=== PATIENT | female | born 1945 | race Caucasian/White ===

== ENCOUNTER → 2017-12-14 14:50 | Outpatient (CLI) | payer MEDICARE, SELFPAY ==
--- NOTE | 2017-12-14 14:53 | VDLE_ITS ---
Reason For Study: LLE swelling RIGHT LEFT CFV is compressible, spontaneous, phasic, GSV is normal. competent and demonstrates normal FV is compressible, spontaneous, phasic, augmentation. competent and demonstrates normal Procedure augmentation. Exam performed in department. POP V is compressible, spontaneous, phasic, The exam was diagnostic. competent and demonstrates normal A preliminary report was called and/or faxed augmentation. to Sharon @ Dr. Castro's office @ 325 pm. T/P Trunk is compressible. DR. Castro's office instructed me to fax LT PerV is compressible. prelim to Dr. Turner as Dr. David (PCP) Profunda V is dilated and noncompressible - is out of office. Dr. Turner/staff will extending into CFV. call VL with instructions. CFV is partially compressible. Christine from Dr. Turner's office called in RX PTV is partially compressible. for PT and PT will be seen in office Gastrocnemius V is dilated and non tomorrow. compressible. Interpretation Summary Acute deep vein thrombosis is noted in the left common femoral vein. Acute deep vein thrombosis is noted in the left profunda femoris vein. Acute deep vein thrombosis is noted in the left posterior tibial vein. Acute deep vein thrombosis is noted in the left gastrocnemius vein. The remainder of the left lower extremity deep venous system is patent and compressible. The left femoral vein and popliteal vein are competent. The left great saphenous vein is patent and compressible. Ordering Physician: Jose Castro Referring Physician: Giorgio David M.D. Performed By: Summer Thakkar, POOL, RVT
== END ==
PROVIDERS: Family Provider Family Medicine; PCP Family Medicine; Visit Provider Orthopaedic Surgery Orthopaedic Surgery of the Spine
DX: M79.89 Other specified soft tissue disorders (principal); M43.16 Spondylolisthesis, lumbar region; M41.9 Scoliosis, unspecified; M51.36 Other intervertebral disc degeneration, lumbar region; Z98.1 Arthrodesis status
CPT/HCPCS: 93971

== ENCOUNTER → 2017-12-22 10:37 | Outpatient (CLI) | payer MEDICARE, SELFPAY ==
--- NOTE | 2017-12-22 10:40 | CT_ITS ---
STUDY: CT LUMBAR SPINE WITHOUT CONTRAST REASON FOR EXAM: Female, 72 years old. Lumbar fusion. Continued pain. RADIATION DOSAGE (If Supplied By Facility): CTDIvol = ( 33.60 ) mGy, DLP = ( 911.60 ) mGycm TECHNIQUE: The patient was scanned in a multi detector CT scanner. High resolution transaxial imaging was performed. Sagittal and coronal images were reconstructed. Individualized dose optimization techniques were used for this CT. COMPARISON: None FINDINGS: This evaluation is very significantly limited without prior studies which certainly must exist. Comparison to prior studies recommended when able. There is also significant metal artifact degrading the images and there is also decreased resolution from patient size. There is mild scoliosis to the right. There is normal lordosis. Bilateral intrapedicular screws with posterior rods seen at L2, L3, L4, and L5. No evidence for failure of the fixation hardware. 6 mm anterolisthesis of L4 on L5, otherwise normal alignment. No compression fractures. Pedicles and facet joints are intact at all levels. Prominent facet joint degenerative disease at multiple levels. Multilevel degenerative disc disease. Multilevel vacuum phenomenon. Multilevel loss of disc height most pronounced at L2-L3. Axial images very difficult to evaluate because of metal artifact. Probable mild to moderate spinal stenosis at L1-L2. Multilevel moderate to severe bilateral neural foraminal narrowing. Sacroiliac joints intact bilaterally. Visualized paraspinal soft tissues and structures are grossly negative. CT/Spine Lumbar without Contrast IMPRESSION: This examination is limited by factors above including lack of any prior studies which certainly must exist in this postoperative patient. No definite acute abnormality. Multilevel degenerative disc disease and multilevel bilateral neural foraminal narrowing. No gross acute abnormality or complication related to fixation hardware. Electronically Signed: Enzo Dickerson MD at 14:33 EDT , Service support ,
== END ==
PROVIDERS: Family Provider Family Medicine; PCP Family Medicine; Visit Provider Orthopaedic Surgery Orthopaedic Surgery of the Spine
DX: M43.16 Spondylolisthesis, lumbar region (principal); M41.9 Scoliosis, unspecified; M51.36 Other intervertebral disc degeneration, lumbar region; Z98.1 Arthrodesis status
CPT/HCPCS: 72131

== ENCOUNTER 2018-04-10 11:30 | Outpatient (RCR) | payer MEDICARE, SELFPAY ==
--- NOTE | 2017-11-07 14:17 | HP.PTEVAL ---
Patient's Visit Information NIKITA FOFANA is a 72 year old F referred to Physical Therapy by MUSA WARREN with a diagnosis of S/P LUMBAR FUSION. Date of Evaluation: 11/07/17 Physical Therapist: Tre Davis PT, - Visit Plan Frequency: 3x /Week Duration: 8WEEKS Plan: gait training,postural ex, DLS, BLE strengthening,nustep,CP - Subjective Subjective: This 72 y/o female presents to physical therapy with s/p LUMBAR FUSION on 10/11/17 at [facility].Patient fusion consisted of plates and srews . Patient then transferred [facility] for 3weeks Rehab. D/C to home 11/04/17. Patient had MRI showed stenosis. Tried PT and epidural injections. Patient has DJD needs TKR. Patient has difficutly with walking with fww,standing impairs ADL'S houseworks tasks.Symmtrical lumbar pain ache.[facility]. Denies parathesia/tingling. Patient sleeping in bed.Patient reguires assist with ADL'S bathing dressing,spouse does cooking. Patient has bone stimulation unit 2 hours a day.Patient has brace on all times except resting in bed. HOME SITUATION: 1 story with 3 steps with rails,patient has bedside commode,elvated chair for bathroom. PRECAUTION : NO BENDING/LIFTING/TWISTING. SOCAIL: . VOCATION: - Pain Bilateral Back Pain Intensity (Out of 10): 3 Pain Intensity Range: 10 Left Lower Extremity Pain Intensity (Out of 10): 7 Pain Intensity Range: 10 Comment: walking,lateral calf - Objective POSTURE: foward posture. SKIN: inscion well approximate. NEURO: denies parathesia/tingling ,reflexes L3-4,L5-S1,L4-5 1/3. MMT: quads/hams 4-/5,hip flexion 3-/5 L ,R 3+/5,ankle 4/5. LUMBAR ROM: NT. FLEXABLITY: mod hams. GAIT: ambulated with fww mild/mod foward posture 20 feet x2 reciprocal pattern WITH CGA with lumbar brace. BALANCE: fair with fww - Special Tests L/S Slump test left side: Negative L/S Slump test right side: Negative L/S Left Straight Leg Raise: Negative L/S Right Straight Leg Raise: Negative - Goals Goal 1:: Patient to be Independant with HEP Goal Time Frame: 6-8 Weeks Goal 2:: Patient ambulated with appropriate device community distance with improve qaulity of gat Goal Time Frame: 6-8 Weeks Goal 3:: Patient decrease pain by 50% or greater in lumbar in improve function with gait Goal Time Frame: 6-8 Weeks Goal 4:: Patient to improve strength quads/hams 4/5 ,hip 4-/5 to improve function Goal Time Frame: 6-8 Weeks Goal 5:: Patient improve balance good - with device. Goal Time Frame: 6-8 Weeks Goal 6:: Patient be able to perform ADL'S and and light housework tasks with min limiations Goal Time Frame: 4-6 Weeks - Rehabilitation Potential Physical Therapy Diagnosis: This s/p lumbar fusion with plates srews with decrease gait,balance ,function ,decrease ADL'S and decrease strength and pain thus benifit from skilled PT Rehabilitation Potential: Good - Anticipated Interventions Patient/Client Instruction: Educate patient on: Condition, Plan of Care For the Purpose of:: To decrease pain, To increase ROM, To improve muscle performance and motor function, To improve ability to perform ADL's, To increase tolerance to activity/condition/position, To improve ability of physical actions for home/community/work/leisure, To improve gait and locomotor functions, To improve health of tissue, To increase flexibility/ROM, To improve endurance, To improve balance, To improve safety with gait, To improve ability to perform tasks related to life management Therapeutic Exercise to Include: Strength training, Body mechanics, Postural training, Flexibilty training, Gait and locomotor training, Dynamic Lumbar Stabilization For the Purpose of:: To decrease pain, To increase ROM, To improve muscle performance and motor function, To improve ability to perform ADL's, To increase tolerance to activity/condition/position, To improve performance and independence with ADL's, To improve ability of physical actions for home/community/work/leisure, To improve gait and locomotor functions, To decrease soft tissue restriction, To increase flexibility/ROM, To improve safety with gait, To assume or resume ADL's, To improve ability to perform tasks related to life management, To improve tolerance to ADL's TENS: Yes IF ES: Yes Cryotherapy (ice pack, ice massage): Yes Thermo therapy (hot pack): Yes For the Purpose of:: To decrease pain, To decrease swelling/inflammation, To improve nutrient delivery to tissue, To increase oxygenation perfusion, To improve health of tissue, To decrease soft tissue restriction Thank you for the opportunity to evaluate your patient. For Medicare and Medicare HMO plans, please review the plan of care and approve it. It will need to be FAXED BACK to us at [phone] for Medicare purposes. Please let me know if there are questions or concerns regarding this plan of care. Physician Signature: Date:
--- NOTE | 2017-12-13 15:06 | HP.PTREVAL_ITS ---
MUSA GLASER, It has been my pleasure to treat NIKITA FOFANA over the last 9 visits for S/P LUMBAR FUSION. Please see the progress note below for an update on the physical therapy plan of care! Subjective: Planning to see MD due to increase pain left L-S -buttuck and lateral leg /hams. Pain with walking is worse occassionally sharp/stabbing pain 10/10 in buttuck Objective/Function: POSTURE: mod foward posture. GAIT: ambulates with fww with CGA posture antalgic gait left side slow mary w/c follow 20 feet x1 30 feet x1. NEURO: C/O parathesia /tingling leg left,reflexes 1/3 L3-4,L4-5,L5-S1. EDEMA: 2+ left greaster than 1+ right leg pitted. MMT: quads R 4-/5,L 3+/5, hams bilatera;l 4-/5, R hip flexion 3+/5,L 3/5. LUMBAR ROM: flexion mod/severe loss ,etension severe loss pain Plan Plan: Requesting 10 more visits. Patient to benifit from skilled PT due to pain left lumbar leg impairs ablity to AMBULATE only short distance,decrease strength left leg ,decrease ADL'S. Goals Goal 1:: Patient to be Independant with HEP Goal Time Frame: 6-8 Weeks Goal 2:: Patient ambulated with appropriate device community distance with improve qaulity of gat Goal Time Frame: 6-8 Weeks Goal Progress: Not Progressing Goal 3:: Patient decrease pain by 50% or greater in lumbar in improve function with gait Goal Time Frame: 6-8 Weeks Goal 4:: Patient to improve strength quads/hams 4/5 ,hip 4-/5 to improve function Goal Time Frame: 6-8 Weeks Goal 5:: Patient improve balance good - with device. Goal Time Frame: 6-8 Weeks Goal 6:: Patient be able to perform ADL'S and and light housework tasks with min limiations Goal Time Frame: 4-6 Weeks Anticipated Interventions Patient/Client Instruction: Educate patient on: Condition, Plan of Care For the Purpose of:: To decrease pain, To increase ROM, To improve muscle performance and motor function, To improve ability to perform ADL's, To increase tolerance to activity/condition/position, To improve ability of physical actions for home/community/work/leisure, To improve gait and locomotor functions, To improve health of tissue, To increase flexibility/ROM, To improve endurance, To improve balance, To improve safety with gait, To improve ability to perform tasks related to life management Therapeutic Exercise to Include: Strength training, Body mechanics, Postural training, Flexibilty training, Gait and locomotor training, Dynamic Lumbar Stabilization For the Purpose of:: To decrease pain, To increase ROM, To improve muscle performance and motor function, To improve ability to perform ADL's, To increase tolerance to activity/condition/position, To improve performance and independence with ADL's, To improve ability of physical actions for home/ community/work/leisure, To improve gait and locomotor functions, To decrease soft tissue restriction, To increase flexibility/ROM, To improve safety with gait, To assume or resume ADL's, To improve ability to perform tasks related to life management, To improve tolerance to ADL's TENS: Yes IF ES: Yes Cryotherapy (ice pack, ice massage): Yes Thermo therapy (hot pack): Yes For the Purpose of:: To decrease pain, To decrease swelling/inflammation, To improve nutrient delivery to tissue, To increase oxygenation perfusion, To improve health of tissue, To decrease soft tissue restriction Please do not hesitate to contact me at [phone] by phone or Fax: if you have questions or concerns regarding this new plan of care! Sincerely, Tre Davis PT,
--- NOTE | 2018-01-03 12:26 | HP.PTREVAL_ITS ---
MUSA GLASER, It has been my pleasure to treat NIKITA FOFANA over the last 10 visits for S/ P LUMBAR FUSION. Please see the progress note below for an update on the physical therapy plan of care! Subjective: Seen DR CEDENO leg found DVT on MEDS ,okay did resume PT/. Seen ortho surgeon did CTSCAN. Pain is some better. Location pain lefT L-S region buttuck hams below knee. Received 4 more visits Objective/Function: POSTURE: mod foward posture. GAIT: ambulates with fww with CGA posture antalgic gait left side slow mary w/c follow 20 feet x1 30 feet x1. NEURO: C/O parathesia /tingling leg left,reflexes 1/3 L3-4,L4-5,L5-S1. EDEMA: 2+ left greaster than 1+ right leg pitted. MMT: quads R 4-/5,L 3+/5, hams bilatera;l 4-/5, R hip flexion 3+/5,L 3/5. LUMBAR ROM: flexion mod/severe loss ,etension severe loss pain Plan Plan: cont with POC 2 XWEEK FOR 2WEEKS. Goals Goal 1:: Patient to be Independant with HEP Goal Time Frame: 6-8 Weeks Goal Progress: Progressing Goal 2:: Patient ambulated with appropriate device community distance with improve qaulity of gat Goal Time Frame: 6-8 Weeks Goal Progress: Progressing Goal 3:: Patient decrease pain by 50% or greater in lumbar in improve function with gait Goal Time Frame: 6-8 Weeks Goal Progress: Progressing Goal 4:: Patient to improve strength quads/hams 4/5 ,hip 4-/5 to improve function Goal Time Frame: 6-8 Weeks Goal Progress: Progressing Goal 5:: Patient improve balance good - with device. Goal Time Frame: 6-8 Weeks Goal Progress: Progressing Goal 6:: Patient be able to perform ADL'S and and light housework tasks with min limiations Goal Time Frame: 4-6 Weeks Goal Progress: Progressing Anticipated Interventions Patient/Client Instruction: Educate patient on: Condition, Plan of Care For the Purpose of:: To decrease pain, To increase ROM, To improve muscle performance and motor function, To improve ability to perform ADL's, To increase tolerance to activity/condition/position, To improve ability of physical actions for home/community/work/leisure, To improve gait and locomotor functions, To improve health of tissue, To increase flexibility/ROM, To improve endurance, To improve balance, To improve safety with gait, To improve ability to perform tasks related to life management Therapeutic Exercise to Include: Strength training, Body mechanics, Postural training, Flexibilty training, Gait and locomotor training, Dynamic Lumbar Stabilization For the Purpose of:: To decrease pain, To increase ROM, To improve muscle performance and motor function, To improve ability to perform ADL's, To increase tolerance to activity/condition/position, To improve performance and independence with ADL's, To improve ability of physical actions for home/ community/work/leisure, To improve gait and locomotor functions, To decrease soft tissue restriction, To increase flexibility/ROM, To improve safety with gait, To assume or resume ADL's, To improve ability to perform tasks related to life management, To improve tolerance to ADL's TENS: Yes IF ES: Yes Cryotherapy (ice pack, ice massage): Yes Thermo therapy (hot pack): Yes For the Purpose of:: To decrease pain, To decrease swelling/inflammation, To improve nutrient delivery to tissue, To increase oxygenation perfusion, To improve health of tissue, To decrease soft tissue restriction Please do not hesitate to contact me at [phone] by phone or Fax: if you have questions or concerns regarding this new plan of care! Sincerely, Tre Davis PT,
--- NOTE | 2018-01-16 13:32 | HP.PTREVAL_ITS ---
MUSA GLASER, It has been my pleasure to treat NIKITA FOFANA over the last 13 visits for S/ P LUMBAR FUSION. Please see the progress note below for an update on the physical therapy plan of care! Subjective: Symptoms are intermiitant in left lumbar and calf.Patient needs to use w/c for ADL''S due to min ablity to walk and stand. Difficulty with with ADL 's ,Independant with dressing,spose has assist with bathing,cooking and does cleaning. 6-02/12 with walking with standing short distances .Patient plans to RTD for other diagnostics. Patient also developed DVT left leg caused further impairments with function. Objective/Function: POSTURE: mod foward posture. GAIT: AMBULATES with fww with CGA with w/c follow 30 feet x1. TRANSFERS: SIT-STAND WITH SBA. STAIRS: needs assist with min assist. LUMBAR ROM: flexion mod /severe loss,extreme loss. MMT : quads/hams 4-/5 right hip flexion 4-/5 ,left 3/5 ankle 4-/5 left ,right 4/5 - DF Plan Plan: Reqesting more 8 visits due to compleity issues with patient with decrease gait with fww with back and leg pain ,weakess left leg impairs ADL'S and requires assist. thus benifit from skilled PT Goals Goal 1:: Patient to be Independant with HEP Goal Time Frame: 6-8 Weeks Goal Progress: Progressing Goal 2:: Patient ambulated with appropriate device community distance with improve qaulity of gat Goal Time Frame: 6-8 Weeks Goal Progress: Progressing Goal 3:: Patient decrease pain by 50% or greater in lumbar in improve function with gait Goal Time Frame: 6-8 Weeks Goal Progress: Progressing Goal 4:: Patient to improve strength quads/hams 4/5 ,hip 4-/5 to improve function Goal Time Frame: 6-8 Weeks Goal Progress: Progressing Goal 5:: Patient improve balance good - with device. Goal Time Frame: 6-8 Weeks Goal Progress: Progressing Goal 6:: Patient be able to perform ADL'S and and light housework tasks with min limiations Goal Time Frame: 4-6 Weeks Goal Progress: Progressing Anticipated Interventions Patient/Client Instruction: Educate patient on: Condition, Plan of Care For the Purpose of:: To decrease pain, To increase ROM, To improve muscle performance and motor function, To improve ability to perform ADL's, To increase tolerance to activity/condition/position, To improve ability of physical actions for home/community/work/leisure, To improve gait and locomotor functions, To improve health of tissue, To increase flexibility/ROM, To improve endurance, To improve balance, To improve safety with gait, To improve ability to perform tasks related to life management Therapeutic Exercise to Include: Strength training, Body mechanics, Postural training, Flexibilty training, Gait and locomotor training, Dynamic Lumbar Stabilization For the Purpose of:: To decrease pain, To increase ROM, To improve muscle performance and motor function, To improve ability to perform ADL's, To increase tolerance to activity/condition/position, To improve performance and independence with ADL's, To improve ability of physical actions for home/ community/work/leisure, To improve gait and locomotor functions, To decrease soft tissue restriction, To increase flexibility/ROM, To improve safety with gait, To assume or resume ADL's, To improve ability to perform tasks related to life management, To improve tolerance to ADL's TENS: Yes IF ES: Yes Cryotherapy (ice pack, ice massage): Yes Thermo therapy (hot pack): Yes For the Purpose of:: To decrease pain, To decrease swelling/inflammation, To improve nutrient delivery to tissue, To increase oxygenation perfusion, To improve health of tissue, To decrease soft tissue restriction Please do not hesitate to contact me at [phone] by phone or Fax: if you have questions or concerns regarding this new plan of care! Sincerely, Tre Davis PT,
--- NOTE | 2018-02-27 17:50 | HP.PTREVAL_ITS ---
MUSA GLASER, It has been my pleasure to treat NIKITA FOFANA over the last 19 visits for S/ P LUMBAR FUSION. Please see the progress note below for an update on the physical therapy plan of care! Subjective: Doing better.. Patient is able to do more ADL'S assist with cooking in w/c at home but cant stand for periods of time.Pain back leg 3/10. Patient walking further with fww ,but stays in w/c majority of time.C/O parathesia left foot.Overall getting better Objective/Function: POSTURE: mild foward posture. NEURO: c/o parathesia left foot ,light vtouch intact ,reflexes L3-4,L4-5,L5-S1 1/3. MMT: left hip 3/5, right hip flexion 3+/5 ,ankle 3 /5 dorsiflexion ,quads/hams 4-/5,. TRANSFERS: sit-stand Mod I ndependant. GAIT: Abulate with fww 175 feet x1 with SBA foward posture reciprocal pattern. BALANCE: fair with fww. STAIRS: one step at time with rails with CGA Plan Plan: REGUESTING 8MORE VISITS DUE TO PATIENT IS PROGRESSSING A WITH LESS PAIN IN NAHUN AND LEG. ALTHOUGH STAYS IN W/C DUE TO LIMIATIONS WITH EDURANCE AND PAIN CONTS AFTER 150 FEET WITH GAIT ,PATIENT STAYS IN W/C 90 % OF THE TIME IMPAIRS ADL'S AND WEAKNESS LEFT LEG HIP /ANKLE Goals Goal 1:: Patient to be Independant with HEP Goal Time Frame: 6-8 Weeks Goal Progress: Progressing Goal 2:: Patient ambulated with appropriate device community distance with improve qaulity of gat Goal Time Frame: 6-8 Weeks Goal Progress: Progressing Goal 3:: Patient decrease pain by 50% or greater in lumbar in improve function with gait Goal Time Frame: 6-8 Weeks Goal Progress: Progressing Goal 4:: Patient to improve strength quads/hams 4/5 ,hip 4-/5 to improve function Goal Time Frame: 6-8 Weeks Goal Progress: Progressing Goal 5:: Patient improve balance good - with device. Goal Time Frame: 6-8 Weeks Goal Progress: Progressing Goal 6:: Patient be able to perform ADL'S and and light housework tasks with min limiations Goal Time Frame: 4-6 Weeks Goal Progress: Progressing Anticipated Interventions Patient/Client Instruction: Educate patient on: Condition, Plan of Care For the Purpose of:: To decrease pain, To increase ROM, To improve muscle performance and motor function, To improve ability to perform ADL's, To increase tolerance to activity/condition/position, To improve ability of physical actions for home/community/work/leisure, To improve gait and locomotor functions, To improve health of tissue, To increase flexibility/ROM, To improve endurance, To improve balance, To improve safety with gait, To improve ability to perform tasks related to life management Therapeutic Exercise to Include: Strength training, Body mechanics, Postural training, Flexibilty training, Gait and locomotor training, Dynamic Lumbar Stabilization For the Purpose of:: To decrease pain, To increase ROM, To improve muscle performance and motor function, To improve ability to perform ADL's, To increase tolerance to activity/condition/position, To improve performance and independence with ADL's, To improve ability of physical actions for home/ community/work/leisure, To improve gait and locomotor functions, To decrease soft tissue restriction, To increase flexibility/ROM, To improve safety with gait, To assume or resume ADL's, To improve ability to perform tasks related to life management, To improve tolerance to ADL's TENS: Yes IF ES: Yes Cryotherapy (ice pack, ice massage): Yes Thermo therapy (hot pack): Yes For the Purpose of:: To decrease pain, To decrease swelling/inflammation, To improve nutrient delivery to tissue, To increase oxygenation perfusion, To improve health of tissue, To decrease soft tissue restriction Please do not hesitate to contact me at [phone] by phone or Fax: if you have questions or concerns regarding this new plan of care! Sincerely, Tre Davis PT,
--- NOTE | 2018-04-10 14:59 | HP.PTDCSUM_ITS ---
HP - PT D/C Summary It has been my pleasure to treat NIKITA FOFANA under orders from MUSA GLASER , for the diagnosis of S/P LUMBAR FUSION for a total of 22 visit(s). Discharge Date: 04/10/18 Please see the following information for a summary of their discharge status. - Subjective Subjective: This patient discussed with thwerapist about possible getting left TKR which was recommended by . Patient states cak and leg is better ,just knee pain which impairs gait and function. Patient has been walking more at home and Involving in more ADL'S - Pain Bilateral Back Pain Intensity (Out of 10): 0 Left Lower Extremity Pain Intensity (Out of 10): 3 - Overall Improvement % Improvement: 50 - Objective Objective/Function: POSTURE: stand with foward posture of trunk. GAIT: Ambulates with fww mild foward posture rounded reciprocal pattern decrease stance time left leg antalgic gait 200 feet. MMT: quads/hams 4/5 right left 4-/ 5,righthip flexion 4-/5,left 3+/5, DF RIGHT 4/5 ,LEFT 3+/5. LUMBAR ROM: flexion mod loss,extension severe loss loss. BALANCE: FAIR + WITH FWW - Goals Goal 1:: Patient to be Independant with HEP Goal Progress: Goal Met Goal 2:: Patient ambulated with appropriate device community distance with improve qaulity of gat Goal Progress: Progressing Goal 3:: Patient decrease pain by 50% or greater in lumbar in improve function with gait Goal Progress: Progressing Goal 4:: Patient to improve strength quads/hams 4/5 ,hip 4-/5 to improve function Goal Progress: Progressing Goal 5:: Patient improve balance good - with device. Goal Progress: Progressing Goal 6:: Patient be able to perform ADL'S and and light housework tasks with min limiations Goal Progress: Goal Met - Plan Plan: D/C TO HEP - D/C Information Discharge Comments: HEP If there are questions or concerns regarding this patient's physical therapy, please feel free to call me at [phone]. Thank you for the referral of this patient. Sincerely, Tre Davis, PT,
== END 2018-04-10 19:00 | disposition home or self-care (01) ==
LOC: PT 11:30
PROVIDERS: Family Provider Family Medicine; PCP Family Medicine
DX: Z98.1 Arthrodesis status (principal); M43.16 Spondylolisthesis, lumbar region; M41.9 Scoliosis, unspecified; M51.36 Other intervertebral disc degeneration, lumbar region
CPT/HCPCS: 97035; 97110; 97116; 97162; 97530

== ENCOUNTER 2018-08-13 12:45 | Inpatient (IN) | payer MEDICARE, SELFPAY ==
[2018-08-13 13:09] VITALS: BP 154/61; PULSE 72; RESP 20; TEMP 37.3; O2SAT 96
[2018-08-13 14:40] VITALS: BMI 37.7
[2018-08-13 14:44] VITALS: BMI 37.7
[2018-08-13 15:22] VITALS: BP 151/60; PULSE 90; RESP 18; TEMP 36.7; O2SAT 93
[2018-08-13] MEDS: APIXABAN 2.5 MG TABLET PO (17:33)
[2018-08-13] MEDS: Senna/Docusate Sodium 1 Tablet 2 TABLET PO (17:33)
[2018-08-13] MEDS: oxyCODONE 5 MG Tablet PO (19:03)
--- NOTE | 2018-08-13 19:48 | PCM.HP.STD ---
Problem List (1) Osteoarthritis of left knee Status: Chronic (2) Lumbar spinal stenosis Status: Chronic (3) Hypertension Status: Chronic (4) Allergic rhinitis Status: Chronic (5) GERD (gastroesophageal reflux disease) Status: Chronic (6) Anxiety Status: Chronic (7) Overactive bladder Status: Chronic (8) DVT (deep venous thrombosis) Status: Chronic (9) Pulmonary embolism Status: Chronic History of Present Illness Date of Admission: 08/13/18 Chief Complaint: Here for rehabilitation, strengthening, prior to discharge home with spouse. The patient is a 73 year old Female with below past medical history hospitalized for left total knee replacement 08/08/[address] Venegas, post-operative course unremarkable, admitted to TCU with debility, here for rehabilitation, strengthening, prior to discharge home with spouse. Past Medical History Past Medical History (Chronic Problems): Chronic Problems Osteoarthritis of left knee (Chronic) Lumbar spinal stenosis (Chronic) Hypertension (Chronic) Allergic rhinitis (Chronic) GERD (gastroesophageal reflux disease) (Chronic) Anxiety (Chronic) Overactive bladder (Chronic) DVT (deep venous thrombosis) (Chronic) Pulmonary embolism (Chronic) Allergies Penicillins [PCN] Allergy (Verified 08/13/18 15:22) Swelling Sulfa (Sulfonamide Antibiotics) Allergy (Verified 08/13/18 15:23) Swelling Home Medications: Ambulatory Orders Medication Instructions Recorded Apixaban [Eliquis] 2.5 mg PO BID 08/13/18 Esomeprazole Mag Trihydrate 20 mg PO DAILY 08/13/18 [Nexium] Ibuprofen 400 mg PO BID PRN PRN 08/13/18 Levocetirizine Dihydrochloride 5 mg PO DAILY 08/13/18 [Xyzal] Mv-Mn/C/Glutamin/Lysin/[id number] 1 each PO DAILY 08/13/18 [Airborne Gummies] Oxycodone HCl/Acetaminophen 2 each PO Q4H PRN PRN 08/13/18 [Percocet 5-325 mg Tablet] Oxymetazoline HCl [Afrin] 1 spray NS QHS 08/13/18 Paroxetine HCl [Paxil] 20 mg PO QHS 08/13/18 Pyridoxine HCl (Vitamin B6) [B-6] 200 mg PO DAILY 08/13/18 Telmisartan [Micardis] 40 mg PO DAILY 08/13/18 Tolterodine Tartrate [Detrol] 2 mg PO DAILY PRN PRN 08/13/18 Surgical History: total knee arthroplasty - Left., - - Back Surgery. 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 Lives: Spouse/ Significant Other Smoking Status: Former smoker Tobacco Use: Non-smoker Alcohol: Occasional Drugs: None - *Family History Maternal History Items: No pertinent history Paternal History Items: No pertinent history Review of Systems Constitutional: Denies: Chills, Fever, Weight Change HEENT: Denies: Head Aches, Sinus Congestion, Sinus Drainage Cardiovascular: Denies: Chest Pain, Palpitations Respiratory: Denies: Cough, Shortness of breath at rest, Sputum production Gastrointestinal: Denies: Abdominal Pain, Nausea, Vomiting Genitourinary: Denies: Dysuria Musculoskeletal: Denies: Joint Pain, Joint Tenderness Skin: Denies: Rash, Wounds Neurological: Denies: Numbness, Tingling, Focal weakness Psychiatric: Denies: Anxiety, Depression, Homicidal Ideations, Suicidal Ideations Hematologic/ Lymphatic: Denies: Easy Bruising, Easy Bleeding VTE Information - Inpt Only VTE Present on Admission: No VTE Mechan Device Prophylaxis: Knee High CARMELO Hose VTE Pharm Prophylaxis ordered?: No Reason prophylaxis not ordered:: Treatment Not Indicated - Physical Exam General: Alert, Oriented x3, Cooperative HEENT: Atraumatic, PERRLA, EOMI, Normocephalic Neck: Supple, No JVD, Negative Carotid Bruits Lungs: Clear to auscultation, Normal air movement Cardiovascular: Regular rate, No murmurs Abdomen: Bowel Sounds Present, Soft, Non Tender Extremities: No edema, Capillary Refill Less than 3 Seconds Skin: No rashes, No breakdown, Incision - Left knee clean, dry, intact. Musculoskeletal: No Tenderness to Palpation of Joints or Extremities Neurological: Cranial nerves II-XII grossly intact Psych/Mental Status: Normal Affect, Appropriate Vital Signs Temp Pulse Resp BP Pulse Ox 98.0 F 90 18 151/60 H 93 08/13/18 15:22 08/13/18 15:22 08/13/18 15:22 08/13/18 15:22 08/13/18 15:22 Oxygen Delivery Method Room Air Weight: 109.3 kg Body Mass Index (BMI) 37.7 Assessment/Plan 73 year old female with below past medical history hospitalized for left total knee replacement 08/08/[address] Venegas, admitted to TCU with debility, here for rehabilitation, strengthening, prior to discharge home with spouse. Debility - PT/OT. Pain - Tylenol 1000MG PO Q6H PRN mild pain, Ibuprofen 400MG BID PRN moderate pain, Oxycodone 5MG Q4H PRN severe pain. Bowel - Miralax 17GM daily, senna/colace 2 tablets BID, Dulcolax 10MG PO daily PRN. Pneumonia vaccination - Administer Prevnar 13 and/or Pneumovax 23 as necessary. DVT prophylaxis - Not necessary, already on Eliquis. DVT/PE - Eliquis 2.5MG BID. Allergic Rhinitis - Loratadine 10MG daily, Afrin 1 spray QHS. Hypertension - Losartan 50MG daily. Nutrition - MVI daily. GERD - Pantoprazole 20MG daily. Anxiety - Paroxetine 20MG daily, resident doing well with chronic retirement use, GDR clinically contraindicated. Vitamin B-6 - B-6 200MG daily. OAB - Tolterodine 2MG daily PRN bladder spasms.
--- NOTE | 2018-08-13 19:53 | HP.PCM_ITS ---
Problem List (1) Osteoarthritis of left knee Status: Chronic (2) Lumbar spinal stenosis Status: Chronic (3) Hypertension Status: Chronic (4) Allergic rhinitis Status: Chronic (5) GERD (gastroesophageal reflux disease) Status: Chronic (6) Anxiety Status: Chronic (7) Overactive bladder Status: Chronic (8) DVT (deep venous thrombosis) Status: Chronic (9) Pulmonary embolism Status: Chronic History of Present Illness Date of Admission: 08/13/18 Chief Complaint: Here for rehabilitation, strengthening, prior to discharge home with spouse. The patient is a 73 year old Female with below past medical history hospitalized for left total knee replacement 08/08/[address] Venegas, post-operative course unremarkable, admitted to TCU with debility, here for rehabilitation, strengthening, prior to discharge home with spouse. Past Medical History Past Medical History (Chronic Problems): Chronic Problems Osteoarthritis of left knee (Chronic) Lumbar spinal stenosis (Chronic) Hypertension (Chronic) Allergic rhinitis (Chronic) GERD (gastroesophageal reflux disease) (Chronic) Anxiety (Chronic) Overactive bladder (Chronic) DVT (deep venous thrombosis) (Chronic) Pulmonary embolism (Chronic) Allergies Penicillins [PCN] Allergy (Verified 08/13/18 15:22) Swelling Sulfa (Sulfonamide Antibiotics) Allergy (Verified 08/13/18 15:23) Swelling Home Medications: Ambulatory Orders Medication Instructions Recorded Apixaban [Eliquis] 2.5 mg PO BID 08/13/18 Esomeprazole Mag Trihydrate 20 mg PO DAILY 08/13/18 [Nexium] Ibuprofen 400 mg PO BID PRN PRN 08/13/18 Levocetirizine Dihydrochloride 5 mg PO DAILY 08/13/18 [Xyzal] Mv-Mn/C/Glutamin/Lysin/[id number] 1 each PO DAILY 08/13/18 [Airborne Gummies] Oxycodone HCl/Acetaminophen 2 each PO Q4H PRN PRN 08/13/18 [Percocet 5-325 mg Tablet] Oxymetazoline HCl [Afrin] 1 spray NS QHS 08/13/18 Paroxetine HCl [Paxil] 20 mg PO QHS 08/13/18 Pyridoxine HCl (Vitamin B6) [B-6] 200 mg PO DAILY 08/13/18 Telmisartan [Micardis] 40 mg PO DAILY 08/13/18 Tolterodine Tartrate [Detrol] 2 mg PO DAILY PRN PRN 08/13/18 Surgical History: total knee arthroplasty - Left., - - Back Surgery. 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 Lives: Spouse/ Significant Other Smoking Status: Former smoker Tobacco Use: Non-smoker Alcohol: Occasional Drugs: None - *Family History Maternal History Items: No pertinent history Paternal History Items: No pertinent history Review of Systems Constitutional: Denies: Chills, Fever, Weight Change HEENT: Denies: Head Aches, Sinus Congestion, Sinus Drainage Cardiovascular: Denies: Chest Pain, Palpitations Respiratory: Denies: Cough, Shortness of breath at rest, Sputum production Gastrointestinal: Denies: Abdominal Pain, Nausea, Vomiting Genitourinary: Denies: Dysuria Musculoskeletal: Denies: Joint Pain, Joint Tenderness Skin: Denies: Rash, Wounds Neurological: Denies: Numbness, Tingling, Focal weakness Psychiatric: Denies: Anxiety, Depression, Homicidal Ideations, Suicidal Ideations Hematologic/ Lymphatic: Denies: Easy Bruising, Easy Bleeding VTE Information - Inpt Only VTE Present on Admission: No VTE Mechan Device Prophylaxis: Knee High CARMELO Hose VTE Pharm Prophylaxis ordered?: No Reason prophylaxis not ordered:: Treatment Not Indicated - Physical Exam General: Alert, Oriented x3, Cooperative HEENT: Atraumatic, PERRLA, EOMI, Normocephalic Neck: Supple, No JVD, Negative Carotid Bruits Lungs: Clear to auscultation, Normal air movement Cardiovascular: Regular rate, No murmurs Abdomen: Bowel Sounds Present, Soft, Non Tender Extremities: No edema, Capillary Refill Less than 3 Seconds Skin: No rashes, No breakdown, Incision - Left knee clean, dry, intact. Musculoskeletal: No Tenderness to Palpation of Joints or Extremities Neurological: Cranial nerves II-XII grossly intact Psych/Mental Status: Normal Affect, Appropriate Vital Signs Temp Pulse Resp BP Pulse Ox 98.0 F 90 18 151/60 H 93 08/13/18 15:22 08/13/18 15:22 08/13/18 15:22 08/13/18 15:22 08/13/18 15:22 Oxygen Delivery Method Room Air Weight: 109.3 kg Body Mass Index (BMI) 37.7 Assessment/Plan 73 year old female with below past medical history hospitalized for left total knee replacement 08/08/[address] Venegas, admitted to TCU with debility, here for rehabilitation, strengthening, prior to discharge home with spouse. * Debility - PT/OT. * Pain - Tylenol 1000MG PO Q6H PRN mild pain, Ibuprofen 400MG BID PRN moderate pain, Oxycodone 5MG Q4H PRN severe pain. * Bowel - Miralax 17GM daily, senna/colace 2 tablets BID, Dulcolax 10MG PO daily PRN. * Pneumonia vaccination - Administer Prevnar 13 and/or Pneumovax 23 as necessary. * DVT prophylaxis - Not necessary, already on Eliquis. * DVT/PE - Eliquis 2.5MG BID. * Allergic Rhinitis - Loratadine 10MG daily, Afrin 1 spray QHS. * Hypertension - Losartan 50MG daily. * Nutrition - MVI daily. * GERD - Pantoprazole 20MG daily. * Anxiety - Paroxetine 20MG daily, resident doing well with chronic shelter use, GDR clinically contraindicated. * Vitamin B-6 - B-6 200MG daily. * OAB - Tolterodine 2MG daily PRN bladder spasms.
[2018-08-13] MEDS: Acetaminophen 500 MG Tablet 1000 MG PO (21:10)
[2018-08-14] MEDS: oxyCODONE 5 MG Tablet PO ×4 (00:54→20:33)
[2018-08-14] MEDS: APIXABAN 2.5 MG TABLET PO ×2 (04:44→17:22)
[2018-08-14] MEDS: Pantoprazole Sodium 20 MG Tablet PO (04:44)
[2018-08-14] MEDS: Pyridoxine HCl 100 MG Tablet 200 MG PO (04:44)
[2018-08-14] MEDS: Losartan Potassium 50 MG Tablet PO (04:44)
[2018-08-14] MEDS: Senna/Docusate Sodium 1 Tablet 2 TABLET PO (04:44)
[2018-08-14] MEDS: Loratadine 10 MG Tablet PO (04:44)
[2018-08-14 06:13] LABS: Absolute Lymphocyte Count 2.11 X10^3/ul (0.83-4.51); Absolute Neutrophil Count 4.7 X10^3/uL (2.0-7.7); Basophil# 0.02 X10^3/uL; Basophil% 0.2 % (0-1); Eosinophil# 0.49 X10^3/uL; Eosinophils% 5.8 % (0-5); Hematocrit 33.7 % (37-47); Hemoglobin 10.1 g/dl (12.0-15.0); Lymphocyte # 2.11 X10^3/ul (4.0); Lymphocyte % 24.9 % (19-41); Mean Corpuscular Hgb 28.2 pg (27.0-32.0); Mean Corpuscular Volume 94.1 fL (81-99); Mean Platelet Vol. 9.3 fl (6.2-12.0); Monocyte# 1.15 X10^3/uL; Monocyte% 13.5 % (0-10); Neutrophil % 55.4 % (47-70); Platelet Count 365 K/mm3 (150-450); RBC Distribution Width CV 12.8 % (11.6-14.6); RBC Distribution Width SD 43.5 fl (35.1-43.9); Red Blood Count 3.58 M/mm3 (4.2-5.4); White Blood Count 8.5 K/mm3 (4.4-11.0)
[2018-08-14 06:24] LABS: POSITIVE COUNT NO; POSITIVE DIFFERENTIAL NO; POSITIVE MORPHOLOGY NO
[2018-08-14 06:34] LABS: Anion Gap 7 (5-15); BUN 12 mg/dL (7-18); BUN/Creat Ratio 22.4 RATIO (10-20); Calcium,Total 8.8 mg/dL (8.5-10.1); Chloride 103 mmol/L (98-107); Creatinine, Serum 0.54 mg/dL (0.55-1.02); EST Glomerular Filtration Rate 118 mL/min (>60); Est Glom Filt Rate - Afr Amer 143 mL/min (>60); Estimated Creatinine Clearance 47.27 ml/min; Glucose 108 mg/dL (74-106); Sodium Level 142 mmol/L (136-145)
[2018-08-14] MEDS: Multivitamins,Ther W-Minerals Tablet 1 TABLET PO (07:26)
[2018-08-14] MEDS: Tuberculin,Purif.prot.deriv. 50 TU/ML Vial 5 ML ID (09:45)
[2018-08-14 15:34] VITALS: BP 143/73; PULSE 79; RESP 22; TEMP 36.7; O2SAT 91
--- NOTE | 2018-08-14 18:28 | PCM.PN.RX ---
<Esequiel Arroyo D - Last Filed: 08/14/18 18:28> Progress Note - Pharmacy Subjective: TCU Admission Objective: Allergies Penicillins [PCN] Allergy (Verified 08/13/18 15:22) Swelling Sulfa (Sulfonamide Antibiotics) Allergy (Verified 08/13/18 15:23) Swelling Current Medications Generic Name Dose Route Start Last Admin Trade Name Freq PRN Reason Stop Dose Admin Acetaminophen 1,000 mg 08/13/18 20:09 08/13/18 21:10 Tylenol PO 1,000 mg Q6H PRN PRN Administration MILD PAIN (1-3/10) Apixaban 2.5 mg 08/13/18 18:00 08/14/18 17:22 Eliquis PO 09/03/18 18:01 2.5 mg BID JOSEMANUEL Administration Bisacodyl 10 mg 08/13/18 20:09 Dulcolax PO DAILY PRN Constipation Ibuprofen 400 mg 08/13/18 20:09 Motrin PO BID PRN PRN MODERATE PAIN (4-5/10) Loratadine 10 mg 08/14/18 06:00 08/14/18 04:44 Claritin PO 10 mg DAILY JOSEMANUEL Administration Losartan Potassium 50 mg 08/14/18 06:00 08/14/18 04:44 Cozaar PO 50 mg DAILY JOSEMANUEL Administration Multivitamins/Minerals 1 tablet 08/14/18 08:00 08/14/18 07:26 Multivitamin With Minerals PO 1 tablet DAILY@0800 JOSEMANUEL Administration Oxycodone HCl 5 mg 08/13/18 20:09 08/14/18 13:25 Oxyir PO 5 mg Q4H PRN PRN Administration SEVERE PAIN (6-10/10) Oxymetazoline HCl 1 spray 08/13/18 22:00 08/13/18 20:25 Afrin (Bkc) NASAL Not Given QHS [facility] Pantoprazole Sodium 20 mg 08/14/18 06:00 08/14/18 04:44 Protonix PO 20 mg DAILY JOSEMANUEL Administration Paroxetine HCl 20 mg 08/13/18 17:10 08/14/18 17:22 Paxil PO 20 mg DINNER [facility] Administration Polyethylene Glycol 17 gm 08/14/18 06:00 08/14/18 04:44 Miralax PO Not Given DAILY [facility] Pyridoxine HCl 200 mg 08/14/18 06:00 08/14/18 04:44 Vitamin B-6 PO 200 mg DAILY [facility] Administration Senna/Docusate Sodium 2 tablet 08/13/18 18:00 08/14/18 17:22 Senokot-S, Brii-Colace PO Not Given BID [facility] Tolterodine Tartrate 2 mg 08/13/18 17:30 Detrol La PO DAILY PRN PRN BLADDER SPASMS Tuberculin PPD 5 tu 08/21/18 10:00 Tubersol, Aplisol, Ppd ID 08/21/18 10:01 X1 ONE Problem List Osteoarthritis of left knee (Chronic) Lumbar spinal stenosis (Chronic) Hypertension (Chronic) Allergic rhinitis (Chronic) GERD (gastroesophageal reflux disease) (Chronic) Anxiety (Chronic) Overactive bladder (Chronic) DVT (deep venous thrombosis) (Chronic) Pulmonary embolism (Chronic) Vital Signs Temp Pulse Resp BP Pulse Ox 98.1 F 79 22 H 143/73 H 91 08/14/18 15:34 08/14/18 15:34 08/14/18 15:34 08/14/18 15:34 08/14/18 15:34 Oxygen Delivery Method Room Air Weight: 109.3 kg Body Mass Index (BMI) 37.7 Sodium 142 mmol/L (136-145) 08/14/18 05:20 Potassium 4.0 mmol/L (3.5-5.1) 08/14/18 05:20 Chloride 103 mmol/L (98-107) 08/14/18 05:20 Carbon Dioxide 32.0 mmol/L (21.0-32.0) 08/14/18 05:20 Anion Gap 7 (5-15) 08/14/18 05:20 BUN 12 mg/dL (7-18) 08/14/18 05:20 Creatinine 0.54 mg/dL (0.55-1.02) L 08/14/18 05:20 Est GFR (MDRD) Af Amer 143 mL/min (>60) 08/14/18 05:20 Est GFR (MDRD) Non-Af 118 mL/min (>60) 08/14/18 05:20 BUN/Creatinine Ratio 22.4 RATIO (10-20) H 08/14/18 05:20 Glucose 108 mg/dL (74-106) H 08/14/18 05:20 Assessment/Plan: 1) Pain APAP for mild pain, ibuprofen for moderate pain, oxycodone for severe pain. 2) HTN Losartan daily. Continue to monitor BP/HR, renal function, electrolytes. *3) Tolterodine LA ordered prn for bladder spasms. * Consider shorter acting medication for prn use. LA tolterodine is a 24 hr medication that puts patient at risk for anticholinergic side effects (BEERS). 4) Anticoag Apixaban twice daily. Continue to monitor s/s bleeding. 5) GI Pantoprazole daily. Continue to monitor s/s GI distress. Psychotropic Medications: 6) Anxiety Paroxetine daily. Continue to monitor s/s anxiety. Unnecessary Medications: None Bowel Regimen: 7) Senna/s, PEG, prn bisacodyl. Continue to monitor prn medication use, for constipation/diarrhea. Date of Note:: 08/14/18 - Provider Comments Provider responsibility: Provider responsible to enter orders to implement recommendations <Taqueria Steve Chi - Last Filed: 08/14/18 20:44> Progress Note - Pharmacy Subjective: [] Objective: Allergies Penicillins [PCN] Allergy (Verified 08/13/18 15:22) Swelling Sulfa (Sulfonamide Antibiotics) Allergy (Verified 08/13/18 15:23) Swelling Current Medications Generic Name Dose Route Start Last Admin Trade Name Freq PRN Reason Stop Dose Admin Acetaminophen 1,000 mg 08/13/18 20:09 08/13/18 21:10 Tylenol PO 1,000 mg Q6H PRN PRN Administration MILD PAIN (1-3/10) Apixaban 2.5 mg 08/13/18 18:00 08/14/18 17:22 Eliquis PO 09/03/18 18:01 2.5 mg BID JOSEMANUEL Administration Bisacodyl 10 mg 08/13/18 20:09 Dulcolax PO DAILY PRN Constipation Ibuprofen 400 mg 08/13/18 20:09 Motrin PO BID PRN PRN MODERATE PAIN (4-5/10) Loratadine 10 mg 08/14/18 06:00 08/14/18 04:44 Claritin PO 10 mg DAILY JOSEMANUEL Administration Losartan Potassium 50 mg 08/14/18 06:00 08/14/18 04:44 Cozaar PO 50 mg DAILY JOSEMANUEL Administration Multivitamins/Minerals 1 tablet 08/14/18 08:00 08/14/18 07:26 Multivitamin With Minerals PO 1 tablet DAILY@0800 [facility] Administration Oxycodone HCl 5 mg 08/13/18 20:09 08/14/18 20:33 Oxyir PO 5 mg Q4H PRN PRN Administration SEVERE PAIN (6-10/10) Oxymetazoline HCl 1 spray 08/13/18 22:00 08/14/18 20:36 Afrin (Bkc) NASAL Not Given QHS [facility] Pantoprazole Sodium 20 mg 08/14/18 06:00 08/14/18 04:44 Protonix PO 20 mg DAILY [facility] Administration Paroxetine HCl 20 mg 08/13/18 17:10 08/14/18 17:22 Paxil PO 20 mg DINNER [facility] Administration Polyethylene Glycol 17 gm 08/14/18 06:00 08/14/18 04:44 Miralax PO Not Given DAILY [facility] Pyridoxine HCl 200 mg 08/14/18 06:00 08/14/18 04:44 Vitamin B-6 PO 200 mg DAILY [facility] Administration Senna/Docusate Sodium 2 tablet 08/13/18 18:00 08/14/18 17:22 Senokot-S, Brii-Colace PO Not Given BID [facility] Tolterodine Tartrate 2 mg 08/13/18 17:30 Detrol La PO DAILY PRN PRN BLADDER SPASMS Tuberculin PPD 5 tu 08/21/18 10:00 Tubersol, Aplisol, Ppd ID 08/21/18 10:01 X1 ONE Problem List Osteoarthritis of left knee (Chronic) Lumbar spinal stenosis (Chronic) Hypertension (Chronic) Allergic rhinitis (Chronic) GERD (gastroesophageal reflux disease) (Chronic) Anxiety (Chronic) Overactive bladder (Chronic) DVT (deep venous thrombosis) (Chronic) Pulmonary embolism (Chronic) Vital Signs Temp Pulse Resp BP Pulse Ox 98.1 F 79 22 H 143/73 H 91 08/14/18 15:34 08/14/18 15:34 08/14/18 15:34 08/14/18 15:34 08/14/18 15:34 Oxygen Delivery Method Room Air Weight: 109.3 kg Body Mass Index (BMI) 37.7 Sodium 142 mmol/L (136-145) 08/14/18 05:20 Potassium 4.0 mmol/L (3.5-5.1) 08/14/18 05:20 Chloride 103 mmol/L (98-107) 08/14/18 05:20 Carbon Dioxide 32.0 mmol/L (21.0-32.0) 08/14/18 05:20 Anion Gap 7 (5-15) 08/14/18 05:20 BUN 12 mg/dL (7-18) 08/14/18 05:20 Creatinine 0.54 mg/dL (0.55-1.02) L 08/14/18 05:20 Est GFR (MDRD) Af Amer 143 mL/min (>60) 08/14/18 05:20 Est GFR (MDRD) Non-Af 118 mL/min (>60) 08/14/18 05:20 BUN/Creatinine Ratio 22.4 RATIO (10-20) H 08/14/18 05:20 Glucose 108 mg/dL (74-106) H 08/14/18 05:20 Assessment/Plan: Psychotropic Medications: Unnecessary Medications: Bowel Regimen: - Provider Comments Provider responsibility: Provider responsible to enter orders to implement recommendations Provider Comments to Recommendations by Pharmacy: Agree
--- NOTE | 2018-08-14 18:32 | PHA.CONS_ITS ---
<Esequiel Arroyo D - Last Filed: 08/14/18 18:28> Progress Note - Pharmacy Subjective: TCU Admission Objective: Allergies Penicillins [PCN] Allergy (Verified 08/13/18 15:22) Swelling Sulfa (Sulfonamide Antibiotics) Allergy (Verified 08/13/18 15:23) Swelling Current Medications Generic Name Dose Route Start Last Admin Trade Name Freq PRN Reason Stop Dose Admin Acetaminophen 1,000 mg 08/13/18 20:09 08/13/18 21:10 Tylenol PO 1,000 mg Q6H PRN PRN Administration MILD PAIN (1-3/10) Apixaban 2.5 mg 08/13/18 18:00 08/14/18 17:22 Eliquis PO 09/03/18 18:01 2.5 mg BID JOSEMANUEL Administration Bisacodyl 10 mg 08/13/18 20:09 Dulcolax PO DAILY PRN Constipation Ibuprofen 400 mg 08/13/18 20:09 Motrin PO BID PRN PRN MODERATE PAIN (4-5/10) Loratadine 10 mg 08/14/18 06:00 08/14/18 04:44 Claritin PO 10 mg DAILY JOSEMANUEL Administration Losartan Potassium 50 mg 08/14/18 06:00 08/14/18 04:44 Cozaar PO 50 mg DAILY JOSEMANUEL Administration Multivitamins/Minerals 1 tablet 08/14/18 08:00 08/14/18 07:26 Multivitamin With Minerals PO 1 tablet DAILY@0800 JOSEMANUEL Administration Oxycodone HCl 5 mg 08/13/18 20:09 08/14/18 13:25 Oxyir PO 5 mg Q4H PRN PRN Administration SEVERE PAIN (6-10/10) Oxymetazoline HCl 1 spray 08/13/18 22:00 08/13/18 20:25 Afrin (Bkc) NASAL Not Given [facility] Pantoprazole Sodium 20 mg 08/14/18 06:00 08/14/18 04:44 Protonix PO 20 mg DAILY JOSEMANUEL Administration Paroxetine HCl 20 mg 08/13/18 17:10 08/14/18 17:22 Paxil PO 20 mg [facility] Administration Polyethylene Glycol 17 gm 08/14/18 06:00 08/14/18 04:44 Miralax PO Not Given DAILY [facility] Pyridoxine HCl 200 mg 08/14/18 06:00 08/14/18 04:44 Vitamin B-6 PO 200 mg DAILY [facility] Administration Senna/Docusate Sodium 2 tablet 08/13/18 18:00 08/14/18 17:22 Senokot-S, Brii-Colace PO Not Given BID [facility] Tolterodine Tartrate 2 mg 08/13/18 17:30 Detrol La PO DAILY PRN PRN BLADDER SPASMS Tuberculin PPD 5 tu 08/21/18 10:00 Tubersol, Aplisol, Ppd ID 08/21/18 10:01 X1 ONE Problem List Osteoarthritis of left knee (Chronic) Lumbar spinal stenosis (Chronic) Hypertension (Chronic) Allergic rhinitis (Chronic) GERD (gastroesophageal reflux disease) (Chronic) Anxiety (Chronic) Overactive bladder (Chronic) DVT (deep venous thrombosis) (Chronic) Pulmonary embolism (Chronic) Vital Signs Temp Pulse Resp BP Pulse Ox 98.1 F 79 22 H 143/73 H 91 08/14/18 15:34 08/14/18 15:34 08/14/18 15:34 08/14/18 15:34 08/14/18 15:34 Oxygen Delivery Method Room Air Weight: 109.3 kg Body Mass Index (BMI) 37.7 Sodium 142 mmol/L (136-145) 08/14/18 05:20 Potassium 4.0 mmol/L (3.5-5.1) 08/14/18 05:20 Chloride 103 mmol/L (98-107) 08/14/18 05:20 Carbon Dioxide 32.0 mmol/L (21.0-32.0) 08/14/18 05:20 Anion Gap 7 (5-15) 08/14/18 05:20 BUN 12 mg/dL (7-18) 08/14/18 05:20 Creatinine 0.54 mg/dL (0.55-1.02) L 08/14/18 05:20 Est GFR (MDRD) Af Amer 143 mL/min (>60) 08/14/18 05:20 Est GFR (MDRD) Non-Af 118 mL/min (>60) 08/14/18 05:20 BUN/Creatinine Ratio 22.4 RATIO (10-20) H 08/14/18 05:20 Glucose 108 mg/dL (74-106) H 08/14/18 05:20 Assessment/Plan: 1) Pain APAP for mild pain, ibuprofen for moderate pain, oxycodone for severe pain. 2) HTN Losartan daily. Continue to monitor BP/HR, renal function, electrolytes. *3) Tolterodine LA ordered prn for bladder spasms. * Consider shorter acting medication for prn use. LA tolterodine is a 24 hr medication that puts patient at risk for anticholinergic side effects (BEERS). 4) Anticoag Apixaban twice daily. Continue to monitor s/s bleeding. 5) GI Pantoprazole daily. Continue to monitor s/s GI distress. Psychotropic Medications: 6) Anxiety Paroxetine daily. Continue to monitor s/s anxiety. Unnecessary Medications: None Bowel Regimen: 7) Senna/s, PEG, prn bisacodyl. Continue to monitor prn medication use, for constipation/diarrhea. Date of Note:: 08/14/18 - Provider Comments Provider responsibility: Provider responsible to enter orders to implement recommendations <Taqueria Steve Chi - Last Filed: 08/14/18 20:44> Progress Note - Pharmacy Subjective: [] Objective: Allergies Penicillins [PCN] Allergy (Verified 08/13/18 15:22) Swelling Sulfa (Sulfonamide Antibiotics) Allergy (Verified 08/13/18 15:23) Swelling Current Medications Generic Name Dose Route Start Last Admin Trade Name Freq PRN Reason Stop Dose Admin Acetaminophen 1,000 mg 08/13/18 20:09 08/13/18 21:10 Tylenol PO 1,000 mg Q6H PRN PRN Administration MILD PAIN (1-3/10) Apixaban 2.5 mg 08/13/18 18:00 08/14/18 17:22 Eliquis PO 09/03/18 18:01 2.5 mg BID JOSEMANUEL Administration Bisacodyl 10 mg 08/13/18 20:09 Dulcolax PO DAILY PRN Constipation Ibuprofen 400 mg 08/13/18 20:09 Motrin PO BID PRN PRN MODERATE PAIN (4-5/10) Loratadine 10 mg 08/14/18 06:00 08/14/18 04:44 Claritin PO 10 mg DAILY JOSEMANUEL Administration Losartan Potassium 50 mg 08/14/18 06:00 08/14/18 04:44 Cozaar PO 50 mg DAILY JOSEMANUEL Administration Multivitamins/Minerals 1 tablet 08/14/18 08:00 08/14/18 07:26 Multivitamin With Minerals PO 1 tablet DAILY@0800 [facility] Administration Oxycodone HCl 5 mg 08/13/18 20:09 08/14/18 20:33 Oxyir PO 5 mg Q4H PRN PRN Administration SEVERE PAIN (6-10/10) Oxymetazoline HCl 1 spray 08/13/18 22:00 08/14/18 20:36 Afrin (Bkc) NASAL Not Given QHS [facility] Pantoprazole Sodium 20 mg 08/14/18 06:00 08/14/18 04:44 Protonix PO 20 mg DAILY [facility] Administration Paroxetine HCl 20 mg 08/13/18 17:10 08/14/18 17:22 Paxil PO 20 mg [facility] Administration Polyethylene Glycol 17 gm 08/14/18 06:00 08/14/18 04:44 Miralax PO Not Given DAILY [facility] Pyridoxine HCl 200 mg 08/14/18 06:00 08/14/18 04:44 Vitamin B-6 PO 200 mg DAILY [facility] Administration Senna/Docusate Sodium 2 tablet 08/13/18 18:00 08/14/18 17:22 Senokot-S, Brii-Colace PO Not Given BID [facility] Tolterodine Tartrate 2 mg 08/13/18 17:30 Detrol La PO DAILY PRN PRN BLADDER SPASMS Tuberculin PPD 5 tu 08/21/18 10:00 Tubersol, Aplisol, Ppd ID 08/21/18 10:01 X1 ONE Problem List Osteoarthritis of left knee (Chronic) Lumbar spinal stenosis (Chronic) Hypertension (Chronic) Allergic rhinitis (Chronic) GERD (gastroesophageal reflux disease) (Chronic) Anxiety (Chronic) Overactive bladder (Chronic) DVT (deep venous thrombosis) (Chronic) Pulmonary embolism (Chronic) Vital Signs Temp Pulse Resp BP Pulse Ox 98.1 F 79 22 H 143/73 H 91 08/14/18 15:34 08/14/18 15:34 08/14/18 15:34 08/14/18 15:34 08/14/18 15:34 Oxygen Delivery Method Room Air Weight: 109.3 kg Body Mass Index (BMI) 37.7 Sodium 142 mmol/L (136-145) 08/14/18 05:20 Potassium 4.0 mmol/L (3.5-5.1) 08/14/18 05:20 Chloride 103 mmol/L (98-107) 08/14/18 05:20 Carbon Dioxide 32.0 mmol/L (21.0-32.0) 08/14/18 05:20 Anion Gap 7 (5-15) 08/14/18 05:20 BUN 12 mg/dL (7-18) 08/14/18 05:20 Creatinine 0.54 mg/dL (0.55-1.02) L 08/14/18 05:20 Est GFR (MDRD) Af Amer 143 mL/min (>60) 08/14/18 05:20 Est GFR (MDRD) Non-Af 118 mL/min (>60) 08/14/18 05:20 BUN/Creatinine Ratio 22.4 RATIO (10-20) H 08/14/18 05:20 Glucose 108 mg/dL (74-106) H 08/14/18 05:20 Assessment/Plan: Psychotropic Medications: Unnecessary Medications: Bowel Regimen: - Provider Comments Provider responsibility: Provider responsible to enter orders to implement recommendations Provider Comments to Recommendations by Pharmacy: Agree
[2018-08-15] MEDS: Acetaminophen 500 MG Tablet 1000 MG PO ×4 (00:19→20:52)
[2018-08-15] MEDS: oxyCODONE 5 MG Tablet PO (02:10)
[2018-08-15] MEDS: APIXABAN 2.5 MG TABLET PO ×2 (05:20→17:04)
[2018-08-15] MEDS: Loratadine 10 MG Tablet PO (05:20)
[2018-08-15] MEDS: Losartan Potassium 50 MG Tablet PO (05:20)
[2018-08-15] MEDS: Pyridoxine HCl 100 MG Tablet 200 MG PO (05:21)
[2018-08-15] MEDS: Pantoprazole Sodium 20 MG Tablet PO (05:21)
[2018-08-15] MEDS: Multivitamins,Ther W-Minerals Tablet 1 TABLET PO (07:53)
[2018-08-15] MEDS: Ibuprofen 400 MG Tablet PO (08:09)
[2018-08-15 15:09] VITALS: BP 155/62; PULSE 75; RESP 14; TEMP 37; O2SAT 92
--- NOTE | 2018-08-15 15:50 | CASEMGMT ---
Insurance Clinical information sent. Pending continued stay approval at this time. Auth#[id number] MALIHA Corrales, CERTIFIED SURGICAL FIRST ASSISTANT
--- NOTE | 2018-08-16 01:26 | NURSING ---
RN heard ruddy from nurses' station. Pt found self transferring to restroom. Pt informed she needs to call for assistance to use restroom. Pt stated, I had to go so bad. RN informed pt an alarm would need to be applied for pt safety if pt self transfers again. Pt verbalized understanding and apologized.
[2018-08-16] MEDS: Ibuprofen 400 MG Tablet PO (01:49)
[2018-08-16] MEDS: Tolterodine Tartrate 2 MG CAP.SA PO (01:49)
[2018-08-16] MEDS: Polyethylene Glycol 3350 17 GM PACKET PO (05:23)
[2018-08-16] MEDS: Senna/Docusate Sodium 1 Tablet 2 TABLET PO ×2 (05:26→17:01)
[2018-08-16] MEDS: Loratadine 10 MG Tablet PO (05:26)
[2018-08-16] MEDS: Acetaminophen 500 MG Tablet 1000 MG PO ×3 (05:26→21:37)
[2018-08-16] MEDS: Pantoprazole Sodium 20 MG Tablet PO (05:26)
[2018-08-16] MEDS: Pyridoxine HCl 100 MG Tablet 200 MG PO (05:26)
[2018-08-16] MEDS: APIXABAN 2.5 MG TABLET PO ×2 (05:27→17:01)
[2018-08-16] MEDS: Losartan Potassium 50 MG Tablet PO (05:27)
[2018-08-16] MEDS: Multivitamins,Ther W-Minerals Tablet 1 TABLET PO (08:19)
--- NOTE | 2018-08-16 10:55 | CASEMGMT ---
Brief interview for mental status (BIMS) and resident mood interview (PHQ-9) completed on this day. BIMS score 1515. PHQ-9 score 10/30
[2018-08-16] MEDS: oxyCODONE 5 MG Tablet PO (11:35)
--- NOTE | 2018-08-16 12:02 | NURSING ---
PT reports that she takes Detrol LA BID at home as needed for overactive bladder. Dr Steve updated, ordered changed.
--- NOTE | 2018-08-16 15:21 | CASEMGMT ---
Insurance Continued stay approved with next update due on 08/21/18. Auth#[id number] MALIHA Corrales, LEAD DATA ARCHITECT
[2018-08-16 15:27] VITALS: BP 149/56; PULSE 64; RESP 20; TEMP 36.4; O2SAT 92
[2018-08-16] MEDS: TOLTERODINE TARTRATE 2 MG TABLET PO (17:02)
[2018-08-17] MEDS: APIXABAN 2.5 MG TABLET PO ×2 (04:03→16:37)
[2018-08-17] MEDS: Pyridoxine HCl 100 MG Tablet 200 MG PO (04:03)
[2018-08-17] MEDS: Pantoprazole Sodium 20 MG Tablet PO ×2 (04:03)
[2018-08-17] MEDS: Losartan Potassium 50 MG Tablet PO (04:03)
[2018-08-17] MEDS: Loratadine 10 MG Tablet PO (04:03)
[2018-08-17 04:08] VITALS: BP 133/64; PULSE 77
[2018-08-17] MEDS: Acetaminophen 500 MG Tablet 1000 MG PO ×3 (06:27→21:09)
[2018-08-17] MEDS: Multivitamins,Ther W-Minerals Tablet 1 TABLET PO (09:50)
[2018-08-17] MEDS: oxyCODONE 5 MG Tablet PO ×2 (09:50→19:55)
[2018-08-17] MEDS: TOLTERODINE TARTRATE 2 MG TABLET PO ×2 (09:51→21:11)
[2018-08-17 15:53] VITALS: BP 156/62; PULSE 74; RESP 18; TEMP 36.1; O2SAT 94
[2018-08-17 20:00] VITALS: PULSE 76; O2SAT 95
[2018-08-18] MEDS: oxyCODONE 5 MG Tablet PO ×3 (02:09→23:35)
[2018-08-18] MEDS: Pyridoxine HCl 100 MG Tablet 200 MG PO (05:45)
[2018-08-18] MEDS: APIXABAN 2.5 MG TABLET PO ×2 (05:45→16:38)
[2018-08-18] MEDS: Losartan Potassium 50 MG Tablet PO (05:45)
[2018-08-18] MEDS: Loratadine 10 MG Tablet PO (05:45)
[2018-08-18] MEDS: Acetaminophen 500 MG Tablet 1000 MG PO ×3 (05:47→21:29)
[2018-08-18] MEDS: Multivitamins,Ther W-Minerals Tablet 1 TABLET PO (09:18)
[2018-08-18] MEDS: TOLTERODINE TARTRATE 2 MG TABLET PO (13:25)
[2018-08-18 15:33] VITALS: BP 158/72; PULSE 80; RESP 20; TEMP 36.4; O2SAT 91
[2018-08-18] MEDS: BACITRACIN 15 GM Tube 1 APPLIC TOPICAL (15:59)
[2018-08-18] MEDS: Doxycycline 100 MG CAPSULE PO (16:38)
[2018-08-18 19:35] VITALS: PULSE 71; O2SAT 95
[2018-08-19] MEDS: Acetaminophen 500 MG Tablet 1000 MG PO ×3 (05:38→21:17)
[2018-08-19] MEDS: Pyridoxine HCl 100 MG Tablet 200 MG PO (05:39)
[2018-08-19] MEDS: Losartan Potassium 50 MG Tablet PO (05:39)
[2018-08-19] MEDS: Doxycycline 100 MG CAPSULE PO ×2 (05:39→17:03)
[2018-08-19] MEDS: Loratadine 10 MG Tablet PO (05:39)
[2018-08-19] MEDS: Pantoprazole Sodium 20 MG Tablet PO (05:39)
[2018-08-19] MEDS: BACITRACIN 15 GM Tube 1 APPLIC TOPICAL (05:39)
[2018-08-19] MEDS: APIXABAN 2.5 MG TABLET PO ×2 (05:39→17:04)
[2018-08-19] MEDS: Multivitamins,Ther W-Minerals Tablet 1 TABLET PO (10:00)
[2018-08-19] MEDS: oxyCODONE 5 MG Tablet PO (10:06)
[2018-08-19] MEDS: TOLTERODINE TARTRATE 2 MG TABLET PO (13:44)
[2018-08-19 15:55] VITALS: BP 137/77; PULSE 71; RESP 18; TEMP 36.5; O2SAT 95
[2018-08-19] MEDS: Senna/Docusate Sodium 1 Tablet 2 TABLET PO (17:04)
[2018-08-20] MEDS: Acetaminophen 500 MG Tablet 1000 MG PO ×3 (04:47→20:44)
[2018-08-20] MEDS: Pyridoxine HCl 100 MG Tablet 200 MG PO (04:48)
[2018-08-20] MEDS: Doxycycline 100 MG CAPSULE PO ×2 (04:48→16:40)
[2018-08-20] MEDS: Senna/Docusate Sodium 1 Tablet 2 TABLET PO (04:48)
[2018-08-20] MEDS: Pantoprazole Sodium 20 MG Tablet PO (04:49)
[2018-08-20] MEDS: APIXABAN 2.5 MG TABLET PO ×2 (04:49→16:40)
[2018-08-20] MEDS: Losartan Potassium 50 MG Tablet PO (04:49)
[2018-08-20] MEDS: Loratadine 10 MG Tablet PO (04:49)
[2018-08-20 04:51] VITALS: BP 148/58; PULSE 83
[2018-08-20] MEDS: Multivitamins,Ther W-Minerals Tablet 1 TABLET PO (08:29)
--- NOTE | 2018-08-20 13:15 | CASEMGMT ---
Social Work Spoke with resident in room. Resident requesting for discharge date to be set for 08/21/18. This manager social work spoke with the team, 08/21/18 is an agreeable date at this time as long as resident is able to have support within the home. Resident reporting that resident spouse will be able to stay with resident within the home and provide 24hr care. This manager social work communicating that physical therapy is recommending for resident to have continued therapy services through outpatient therapy. Resident is agreeable to recommendation and requesting for outpatient physical therapy to be set up through [facility]. Resident aware that an order will be faxed to [facility] and then [facility] will contact resident to set up appointment. Resident reporting to have a walker already set up within the home and to not need any durable medical equipment. Resident spouse to provide transportation home for resident. Resident also declining to have Plan of Care meeting. Resident declining for this manager social work to contact resident spouse in regards to discharge, resident reporting to be able to speak with resident spouse about discharge. Support given. Order for outpatient physical therapy faxed to [facility]. Proposed discharge date: 08/21/18 PLAN: Discharge to home with spouse and outpatient physical therapy. Roderick JETT MSW
[2018-08-20 15:22] VITALS: BP 148/62; PULSE 76; RESP 18; TEMP 36.4; O2SAT 93
[2018-08-20] MEDS: TOLTERODINE TARTRATE 2 MG TABLET PO (16:39)
--- NOTE | 2018-08-20 20:43 | DCINST_ITS ---
- Discharge Diagnoses Current Active Problems: Current Active and Chronic Problems Osteoarthritis of left knee (Chronic) Lumbar spinal stenosis (Chronic) Hypertension (Chronic) Allergic rhinitis (Chronic) GERD (gastroesophageal reflux disease) (Chronic) Anxiety (Chronic) Overactive bladder (Chronic) DVT (deep venous thrombosis) (Chronic) Pulmonary embolism (Chronic) You will use the following diet at home:: No restrictions, Regular Your food should be the consistency of: Regular Your liquids should be the consistency of: Regular/Thin Discharge Activity: Return to Normal Activity, May Shower, Use Walker Weight Bearing Status: Weight bearing as tolerated Call your doctor if you observe: Fever of 101 or Higher, Inability to urinate, Inability to have a bowel movement, Shortness of breath, Chest pain, Uncontrolled pain Allergies/Adverse Reactions: Allergies Penicillins [PCN] Allergy (Verified 08/13/18 15:22) Swelling Sulfa (Sulfonamide Antibiotics) Allergy (Verified 08/13/18 15:23) Swelling Medications to take at Discharge Apixaban [Eliquis] 2.5 mg PO BID 08/13/18 Esomeprazole Mag Trihydrate [Nexium] 20 mg PO DAILY 08/13/18 Ibuprofen 400 mg PO BID PRN PRN 08/13/18 Levocetirizine Dihydrochloride [Xyzal] 5 mg PO DAILY 08/13/18 Mv-Mn/C/Glutamin/Lysin/[id number] [Airborne Gummies] 1 each PO DAILY 08/13/18 Oxymetazoline HCl [Afrin] 1 spray NS QHS 08/13/18 Paroxetine HCl [Paxil] 20 mg PO QHS 08/13/18 Pyridoxine HCl (Vitamin B6) [B-6] 200 mg PO DAILY 08/13/18 Telmisartan [Micardis] 40 mg PO DAILY 08/13/18 Tolterodine Tartrate [Detrol] 2 mg PO DAILY PRN PRN 08/13/18 Acetaminophen [Tylenol] 1,000 mg PO Q8 tablet 08/20/18 Doxycycline 100 mg PO BID #14 cap 08/20/18 Oxycodone [Oxyir] 5 mg PO Q4H PRN PRN 5 Days #30 tab 08/20/18 Polyethylene Glycol 3350 [Miralax] 17 gm PO DAILY #30 packet 08/20/18 Senna/Docusate Sodium [Senokot-S] 2 tab PO BID #120 tab 08/20/18 The following prescriptions were given: Oxycodone [Oxyir] 5 mg PO Q4H PRN PRN 5 Days #30 tab PRN Reason: Severe Pain (-05/15) Polyethylene Glycol 3350 [Miralax] 17 gm PO DAILY #30 packet Doxycycline 100 mg PO BID #14 cap Senna/Docusate Sodium [Senokot-S] 2 tab PO BID #120 tab Primary Care Physician: Giorgio David DO [Primary Care Provider] - Please follow up with your Primary Care Physician in: 1 week. Test Results: Test results from this visit will be discussed in further detail at your follow- up appointment, if applicable. Please Follow Up With: Dr Bey When: 1 week. Proposed Discharge Date: 08/21/18
--- NOTE | 2018-08-20 20:43 | PCM.DC.SUM ---
Discharge Date and Diagnosis Date of Admission: 08/13/18 Date of Discharge: 08/21/18 - Secondary Discharge Diagnosis Chronic Problems Osteoarthritis of left knee (Chronic) Lumbar spinal stenosis (Chronic) Hypertension (Chronic) Allergic rhinitis (Chronic) GERD (gastroesophageal reflux disease) (Chronic) Anxiety (Chronic) Overactive bladder (Chronic) DVT (deep venous thrombosis) (Chronic) Pulmonary embolism (Chronic) Hospital Course and Treatment Imaging Results: 08/13/18 13:18 Diet: Regular Diet Operations: None Procedures: None Summary of Care Provided: The patient is a 73 year old Female with below past medical history hospitalized for left total knee replacement 08/08/[address] Venegas, admitted to TCU with debility, here for rehabilitation, strengthening, prior to discharge home with spouse. Discharge home with spouse, and outpatient physical therapy. - Physical Exam Vital Signs Temp Pulse Resp BP Pulse Ox 97.5 F L 76 18 148/62 H 93 08/20/18 15:22 08/20/18 15:22 08/20/18 15:22 08/20/18 15:22 08/20/18 15:22 Oxygen Delivery Method Room Air Weight: 105.914 kg Body Mass Index (BMI) 37.7 Intake and Output for Last 24 Hours 08/18/18 08/19/18 08/20/18 23:59 23:59 23:59 Intake Total 960 / 960 1020 / 1020 960 / 960 Balance 960 / 960 1020 / 1020 960 / 960 Discharge Diet: No Restrictions Discharge Activity: Return to Normal Activity, May Shower, Use Walker Weight Bearing Status: Weight bearing as tolerated Call your doctor if you observe: Fever of 101 or Higher, Inability to urinate, Inability to have a bowel movement, Shortness of breath, Chest pain, Uncontrolled pain Home Medications: Medications to take at Discharge Apixaban [Eliquis] 2.5 mg PO BID 08/13/18 Esomeprazole Mag Trihydrate [Nexium] 20 mg PO DAILY 08/13/18 Ibuprofen 400 mg PO BID PRN PRN 08/13/18 Levocetirizine Dihydrochloride [Xyzal] 5 mg PO DAILY 08/13/18 Mv-Mn/C/Glutamin/Lysin/[id number] [Airborne Gummies] 1 each PO DAILY 08/13/18 Oxymetazoline HCl [Afrin] 1 spray NS QHS 08/13/18 Paroxetine HCl [Paxil] 20 mg PO QHS 08/13/18 Pyridoxine HCl (Vitamin B6) [B-6] 200 mg PO DAILY 08/13/18 Telmisartan [Micardis] 40 mg PO DAILY 08/13/18 Tolterodine Tartrate [Detrol] 2 mg PO DAILY PRN PRN 08/13/18 Acetaminophen [Tylenol] 1,000 mg PO Q8 tablet 08/20/18 Doxycycline 100 mg PO BID #14 cap 08/20/18 Oxycodone [Oxyir] 5 mg PO Q4H PRN PRN 5 Days #30 tab 08/20/18 Polyethylene Glycol 3350 [Miralax] 17 gm PO DAILY #30 packet 08/20/18 Senna/Docusate Sodium [Senokot-S] 2 tab PO BID #120 tab 08/20/18 Following Prescrptions Were Given to Patient: Oxycodone [Oxyir] 5 mg PO Q4H PRN PRN 5 Days #30 tab PRN Reason: Severe Pain (-05/15) Polyethylene Glycol 3350 [Miralax] 17 gm PO DAILY #30 packet Doxycycline 100 mg PO BID #14 cap Senna/Docusate Sodium [Senokot-S] 2 tab PO BID #120 tab Primary Care Physician: Giorgio David DO [Primary Care Provider] - Please follow up with your Primary Care Physician in: 1 week. Please Follow Up With: Dr Bey When: 1 week. Disposition: Home Minutes spent on discharge:: 30 Patient Condition:: Good Medical Necessity - Tobacco Use Smoking Status: Former smoker Tobacco Use: Non-smoker Meaningful Use Info Meaningful Use Diagnoses (Choose all that apply): None applicable
[2018-08-20] MEDS: oxyCODONE 5 MG Tablet PO (23:19)
[2018-08-21] MEDS: Ibuprofen 400 MG Tablet PO (01:34)
[2018-08-21] MEDS: Senna/Docusate Sodium 1 Tablet 2 TABLET PO (05:11)
[2018-08-21] MEDS: Pyridoxine HCl 100 MG Tablet 200 MG PO (05:11)
[2018-08-21] MEDS: Pantoprazole Sodium 20 MG Tablet PO (05:12)
[2018-08-21] MEDS: Losartan Potassium 50 MG Tablet PO (05:12)
[2018-08-21] MEDS: Acetaminophen 500 MG Tablet 1000 MG PO (05:12)
[2018-08-21] MEDS: APIXABAN 2.5 MG TABLET PO (05:12)
[2018-08-21] MEDS: Loratadine 10 MG Tablet PO (05:12)
[2018-08-21] MEDS: Doxycycline 100 MG CAPSULE PO (05:12)
[2018-08-21 06:06] LABS: Absolute Lymphocyte Count 2.05 X10^3/ul (0.83-4.51); Absolute Neutrophil Count 6.4 X10^3/uL (2.0-7.7); Basophil# 0.03 X10^3/uL; Basophil% 0.3 % (0-1); Eosinophil# 0.36 X10^3/uL; Eosinophils% 3.7 % (0-5); Hematocrit 35.6 % (37-47); Hemoglobin 10.6 g/dl (12.0-15.0); Lymphocyte # 2.05 X10^3/ul (4.0); Lymphocyte % 21.2 % (19-41); Mean Corp Hgb Conc 29.8 g/gl (32-36); Mean Corpuscular Volume 94.2 fL (81-99); Mean Platelet Vol. 9.1 fl (6.2-12.0); Monocyte# 0.79 X10^3/uL; Monocyte% 8.2 % (0-10); Neutrophil # 6.42 X10^3/uL (2.7-7.7); Neutrophil % 66.3 % (47-70); Platelet Count 391 K/mm3 (150-450); RBC Distribution Width CV 13.3 % (11.6-14.6); RBC Distribution Width SD 45.4 fl (35.1-43.9); Red Blood Count 3.78 M/mm3 (4.2-5.4); White Blood Count 9.7 K/mm3 (4.4-11.0)
[2018-08-21 06:18] LABS: POSITIVE COUNT NO; POSITIVE DIFFERENTIAL NO; POSITIVE MORPHOLOGY NO
[2018-08-21 06:21] LABS: Anion Gap 6 (5-15); BUN 19 mg/dL (7-18); BUN/Creat Ratio 34.4 RATIO (10-20); Calcium,Total 8.6 mg/dL (8.5-10.1); Chloride 103 mmol/L (98-107); Creatinine, Serum 0.55 mg/dL (0.55-1.02); EST Glomerular Filtration Rate 114 mL/min (>60); Est Glom Filt Rate - Afr Amer 138 mL/min (>60); Estimated Creatinine Clearance 47.27 ml/min; Glucose 100 mg/dL (74-106); Potassium 4.1 mmol/L (3.5-5.1); Sodium Level 138 mmol/L (136-145)
[2018-08-21] MEDS: Multivitamins,Ther W-Minerals Tablet 1 TABLET PO (08:26)
[2018-08-21] MEDS: oxyCODONE 5 MG Tablet PO (08:28)
[2018-08-21 10:58] VITALS: BP 137/62; PULSE 77; RESP 18; TEMP 36.7; O2SAT 94
--- NOTE | 2018-08-21 11:20 | NURSING ---
dr Steve sent down samples 28 tabs of eliquis for discharge, given to pt and .
--- NOTE | 2018-08-21 13:01 | CASEMGMT ---
Insurance Notified insurance of resident discharge on 08/21/18 to home with spouse and outpatient physical therapy. Auth#[id number] [place]
--- NOTE | 2018-08-26 09:27 | MDS.RN ---
Information for the mds was obtained from review of the clinical record, interview of resident, staff, and direct observation of resident's care.
== END 2018-08-21 11:15 | disposition home or self-care (01) | DRG 561 ==
PROVIDERS: Admitting Provider Family Medicine Geriatric Medicine; Family Provider Family Medicine; PCP Family Medicine; Referring Provider Family Medicine Geriatric Medicine; Visit Provider Family Medicine Geriatric Medicine
DX: Z47.1 Aftercare following joint replacement surgery (principal); Z96.652 Presence of left artificial knee joint; Z86.718 Personal history of other venous thrombosis and embolism; K21.9 Gastro-esophageal reflux disease without esophagitis; I10 Essential (primary) hypertension; M48.061 Spinal stenosis, lumbar region without neurogenic claudication; F41.9 Anxiety disorder, unspecified; N32.81 Overactive bladder; Z86.711 Personal history of pulmonary embolism; Z87.891 Personal history of nicotine dependence
CPT/HCPCS: 36415; 80048; 85025; 97110; 97116; 97162; 97166; 97530; 97535; 97802

== ENCOUNTER 2018-12-03 13:00 | Outpatient (RCR) | payer MEDICARE, SELFPAY ==
--- NOTE | 2018-09-03 14:23 | HP.PTEVAL ---
Patient's Visit Information NIKITA FOFANA is a 73 year old F referred to Physical Therapy by Taqueria Steve MD with a diagnosis of S/P LEFT TKR 08/08/18. Date of Evaluation: 09/03/18 Physical Therapist: Mena Ridley, PT, Cert MDT - Visit Plan Frequency: 2-3x /Week Duration: 4-6 Weeks - Subjective Findings: Work/Leisure: RETIRED. Disability: NO. Present symptoms: LEFT KNEE PAIN, STIFFNESS, WEAKNESS AND SWELLING. Present since: YEARS. Pain Scale: 0-4/10. Currently: 0/10. Commenced as a result of: ARTHRITIS. Symptoms at onset: LEFT KNEE. Worse: STANDING, WALKING, BENDING, TWISTING. Better: PAIN PILLS - TYLONOL. ICE. Disturbed sleep: YES. Previous history/Previous treatment: UNREMARKABLE - JUST A COUPLE OF YEARS OF LEFT KNEE PAIN. WAS PLANNIING TO HAVE KNEE REPLACEMENT ABOUT A YEAR AGO BUT THEN BACK FLARED UP AND HAD TO HAVE BACK SURGERY. LEFT KNEE LIMITED BACK REHAB AND HER LEFT KNEE PAIN GOT HORRIBLE BY THE TIME SHE GOT IN TO GET IT FIXED. Gait: INDEP GAIT SHORT DISTANCES WITH FWW. DOES NOT WALK WITHOUT IT. STATES SHE IS REALLY NOT WALKING MUCH AND BROUGHT W/C TO CAR FOR HER TO COME INTO PT TODAY. STATES SHE CAN DO STEPS NOW AT HOME AND COULD NOT BEFORE SURGERY. Accidents: NO. Unexplained weight loss: NO. Imaging: LEFT KNEE X-RAYS BEFORE AND AFTER SURGERY. PMH: OCTOBER 12 2017 - LUMBAR FUSION. HTN. 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 PLOF (Prior Level of Function): INDEP SAFE GAIT WITH CANE COMMUINITY AMBULATOR. OTHER: DID NOT WALK MUCH LAST WEEK DUE TO COUGHING AND BEING SICK. HAD TO CANCEL THERAPY LAST WEEK BECAUSE OF BEING SICK. STATES SHE WAS ON TCU AFTER SURGERY FOR 8 DAYS. - Objective THIS PATIENT REQUESTED TO BE BROUGHT BACK TO PT IN THE WHEELCHAIR - SHE LEFT HER WALKER IN THE CAR. SHE DEMONSTRATES INDEP GAIT IN THE TREATMENT ROOM WITH OUR FRONT WHEELED WALKER WITH SLOW GOLDY AND EXCESSIVE TRUNK FLEXION (S/P BACK SURGERY) AND LIMPING ON BENT LEFT KNEE. PATIENT IS UPPER EXTREMITY DEPENDENT TO TRANSFER FROM SIT TO STAND. LEFT KNEE AROM IN SUPINE WITH A HEEL SLIDE = -30 DEG EXT TO 95 DEG FLEX. MODERATE LEFT KNEE EDEMA EXTENDING DOWN TO FOOT AND ANKLE. PATIENT REPORTS HER SWELLING IS GETTING A LOT BETTER. SURGICAL INCISION LOOKS GOOD WITHOUT ANY SIGNS OF INFECTION. - Rehabilitation Potential Rehabilitation Potential: Fair - Anticipated Interventions Patient/Client Instruction: Educate patient on: Condition, Plan of Care, Risk Factors, Benefits of Fitness Program For the Purpose of:: To improve self management Therapeutic Exercise to Include: Strength training, Balance training, Flexibilty training, Gait and locomotor training, Passive ROM, Active ROM For the Purpose of:: To decrease pain, To increase ROM, To improve muscle performance and motor function, To increase tolerance to activity/condition/position, To improve ability of physical actions for home/community/work/leisure, To improve gait and locomotor functions Cryotherapy (ice pack, ice massage): Yes For the Purpose of:: To decrease pain, To decrease swelling/inflammation Thank you for the opportunity to evaluate your patient. For Medicare and Medicare HMO plans, please review the plan of care and approve it. It will need to be FAXED BACK to us at [phone] for Medicare purposes. For Medicare only, by signing this I certify the plan of care. Please let me know if there are questions or concerns regarding this plan of care. Physician Signature: Date:
--- NOTE | 2018-10-04 14:26 | HP.PTREVAL ---
Taqueria Steve MD, It has been my pleasure to treat NIKITA FOFANA over the last 9 visits for S/P LEFT TKR 08/08/18. Please see the progress note below for an update on the physical therapy plan of care! Subjective: PATIENT STATES I AM DEFINAELY BETTER THAN I WAS THE FIRST DAY. PATIENT REPORTS SHE STILL GETS OUT OF BREATHE BECAUSE SHE IS NOT DOING ENOUGH. NO LBP SITTING IN CLINIC RIGHT NOW BUT 4/10 PAIN WALKING INTO PT. PATIENT REPORTS HER KNEE ACHES OCCASIONALLY BUT THATS NOTHING. SHE REPORTS IT IS AMAZING HOW GOOD HER KNEE IS DOING AND SHE WISHES HER BACK WAS GOOD HER KNEE. STATES SHE DOENS' T THINK SHE NEEDS ANY MORE PT ON HER KNEE BUT THINKS SHE NEEDS BACK PT AGAIN NOW BECAUSE HER KNEE LIMITED HER BEFORE. STATES DR. RANDOLPH RELEASED HER FOR HER BACK AND SHE DOESN'T HAVE ANY MORE FOLLOW UPS SCHEDULED WITH HIM. FOLLOW UP WITH DR. AQUINO FOR HER KNEE IS IN ABOUT 2 WEEKS. NO JUMANA'TS PENDING WITH PCP DR. WHITNEY. Objective/Function: PATIENT HAS MADE GOOD PROGRESS TOWARD ALL PT GOALS WITH HER KNEE BUT SHE STILL HAS SIGNIFICANT DECREASED LEFT KNEE FUNCTIONAL ROM AND STRENGTH. UPON EXAM TODAY: THIS PATIENT AMBULATES INDEP'LY INTO PT WITH FWW X APPROX 300 FEET WITH HEAVY DEPENDENCE ON WALKER, DECREASED CADANCE, EXCESSIVE TRUNK FLEXION AND SOB. INDEP TRANSFER SIT TO STAND BUT DEPENDENCE ON RODOLFO UE'S TO DO SO. ABLE TO TRANSFER INDEP'LY FROM SUPINE TO SIT BUT PROVOKED MILD DIZZINESS BREIFLY. LEFT KNEE ROM IN SUPINE WITH A HEEL SLIDE = -24 DEG EXT TO 107 DEG FLEXION. LEFT LE STRENGTH: HIP 4-/5, KNEE 3-/5, ANKLE 4/5. Plan Plan: RECOMMEND TRIAL OF AQUATIC THERAPY FOR KNEE X 3 VISITS INLUDING LEFT KNEE ROM, STRETCHING AND STRENGTHENING ALONG WITH GAIT TRAINING. HOPING THAT THE WATER WILL DECREASE BACK LIMITING FACTORS IN KNEE REHAB AND PATIENT MAY EVEN BENEFIT FROM AQUATIC THEARPY FOR BACK CONDITION IN THE FUTURE. NO ORDER FOR BACK REHAB AT THIS TIME BUT DISCUSSED PATIENT SEEING DR. RANDOLPH OR DR. WHITNEY FOR HER BACK AGAIN NOW THAT HER KNEE IS STARTING TO DO BETTER. PATIENT IS AGREEABLE WITH THIS POC. Anticipated Interventions Patient/Client Instruction: Educate patient on: Condition, Plan of Care, Risk Factors, Benefits of Fitness Program For the Purpose of:: To improve self management Therapeutic Exercise to Include: Strength training, Balance training, Flexibilty training, Gait and locomotor training, Passive ROM, Active ROM For the Purpose of:: To decrease pain, To increase ROM, To improve muscle performance and motor function, To increase tolerance to activity/condition/position, To improve ability of physical actions for home/community/work/leisure, To improve gait and locomotor functions Cryotherapy (ice pack, ice massage): Yes For the Purpose of:: To decrease pain, To decrease swelling/inflammation Please do not hesitate to contact me at [phone] by phone or if you have questions or concerns regarding this new plan of care! Sincerely, Mena Ridley, PT, Cert MDT
--- NOTE | 2018-10-22 13:58 | HP.PTREVAL ---
Giorgio David, It has been my pleasure to treat NIKITA FOFANA over the last 13 visits for S/P LEFT TKR 08/08/18. Please see the progress note below for an update on the physical therapy plan of care! Subjective: THAT WATER THERAPY IS WONDERFUL. PATIENT REPORTS SHE HAS [employer] HERE THAT SHE CAN USE FOR THE POOL. SHE STATES SHE HAS ALL THE EQUIPMENT AT HOME THAT SHE NEEDS TOO. PATIENT REPORTS THE POOL EVEN HELPED HER BACK. HAD TO MISS ORTHO FOLLOW UP LAST WEEK SO PENDING THIS SUNDAY. MY KNEE FEELS GOOD HAS BEEN USING WALKER FOR ABOUT A YEAR NOW SINCE BACK SURGERY OCTOBER 2017 BUT EVEN USED A WHEELCHAIR BEFORE KNEE SURGERY. STATES SHE NEEDS THE WALKER FOR HER BACK NOT REALLY HER KNEE. PATIENT FEELS SHE WOULD BENEFIT FROM MORE WATER INSTRUCTION TO HELP SUCCESSFULLY TRANSITION TO INDEP POOL EX'S. Objective/Function: PATIENT IS CONTINUING TO MAKE PROGRESS TOWARD ALL PT GOALS WITH HER KNEE BUT SHE STILL HAS SIGNIFICANT DECREASED LEFT KNEE FUNCTIONAL ROM AND STRENGTH. KNEE FLEXION HAS IMPROVED BY 10 DEG IN THE LAST 3 VISITS BUT EXTENSION HAS ONLY IMPROVED BY 2 DEG. PATIENT CONTINUES TO HAVE SIGNIFICANT LEFT KNEE, LEG, FOOT AND ANKLE SWELLING THAT IS UNCHANGING. SHE REPORTS SOME DAYS IT IS HARDLY THERE AND ELEVATING HELPS. HOMANS TEST IS NEGATIVE TODAY. 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 SHE IS HOWEVER ABLE TO INTERMITTENTLY ACTIVELY CORRECT POSTURE IN STANDING BETTER NOW. INDEP TRANSFER SIT TO STAND BUT DEPENDENCE ON RODOLFO UE'S TO DO SO. ABLE TO TRANSFER INDEP'LY FROM SUPINE TO SIT. LEFT KNEE ROM IN SUPINE WITH A HEEL SLIDE = -22 DEG EXT TO 117 DEG FLEXION. LEFT LE STRENGTH: HIP 4-/5, KNEE 3-/5, ANKLE 4/5. RECOMMEND CONTINUED PT DUE TO PROGRESS CONTINUING TO BE MADE AND ROOM FOR FURTHER IMPROVEMENT. LEFS SCORE HAS IMPROVED FROM 29 TO 34. Plan Plan: RECOMMEND CONTINUED AQUATIC THERAPY FOR KNEE 2X'S A WEEK X 3 WEEKS INLUDING LEFT KNEE ROM, STRETCHING AND STRENGTHENING ALONG WITH GAIT TRAINING TO HELP PATIENT SUCCESSFULLY TRANSITION TO INDEP POOL PROGREAM. HOPING THAT THE WATER WILL CONTINUE TO DECREASE BACK LIMITING FACTORS IN KNEE REHAB NO ORDER FOR BACK REHAB AT THIS TIME. PATIENT IS AGREEABLE TO THIS POC Goals Goal 1:: DECREASE LEFT KNEE PAIN AND SWELLING Goal Time Frame: 4-6 Weeks Goal Progress: Progressing Goal 2:: IMPROVE STANDING AND WALKING FUNCTION Goal Time Frame: 4-6 Weeks Goal Progress: Progressing Goal 3:: INCREASE LEFT KNEE FUNCTIONAL ROM Goal Time Frame: 4-6 Weeks Goal Progress: Progressing Goal 4:: INCREASE LEFT KNEE FUNCTIONAL STRENGTH Goal Time Frame: 4-6 Weeks Goal Progress: Progressing Goal 5:: INDEP HOME AND POOL EXERCISE PROGRAMS FOR CONTINUED IMPROVEMENT ONCE FORMAL PHYSICAL THERAPY CONCLUDES. Goal Time Frame: 4-6 Weeks Goal Progress: Progressing Anticipated Interventions Patient/Client Instruction: Educate patient on: Condition, Plan of Care, Risk Factors, Benefits of Fitness Program For the Purpose of:: To improve self management Therapeutic Exercise to Include: Strength training, Balance training, Flexibilty training, Gait and locomotor training, Passive ROM, Active ROM For the Purpose of:: To decrease pain, To increase ROM, To improve muscle performance and motor function, To increase tolerance to activity/condition/position, To improve ability of physical actions for home/community/work/leisure, To improve gait and locomotor functions Cryotherapy (ice pack, ice massage): Yes For the Purpose of:: To decrease pain, To decrease swelling/inflammation Please do not hesitate to contact me at [phone] by phone or if you have questions or concerns regarding this new plan of care! Sincerely, Mena Ridley PT, Cert MDT
--- NOTE | 2018-12-03 14:41 | HP.PTDCSUM_ITS ---
HP - PT D/C Summary It has been my pleasure to treat NIKITA FOFANA under orders from Giorgio aDvid, for the diagnosis of S/P LEFT TKR 08/08/18 for a total of 19 visit(s). Discharge Date: Please see the following information for a summary of their discharge status. - Subjective Subjective: PATIENT REPORTS HER KNEE IS DOING REALLY GOOD. STATES THAT HER BACK IS THE MAIN PROBLEM NOW. SHE STATES SHE IS GLAD SHE HAD THE KNEE SURGERY BECAUSE IT DOESN'T HURT NOW. SHE REPORTS SHE LIKES THE WATER THERAPY AND IT HAS HELPED HER KNEE AND HER BACK. SHE REPORTS THAT NOW THAT SHE HAS WATER EX'S SHE AND TWO OF HER FRIENDS ARE GOING TO COME AND EX IN THE POOL TOGETHER UNTIL HER POOL OPENS. - Pain Left Knee Pain Intensity (Out of 10): 0 LB Pain Intensity (Out of 10): Unrated - Overall Improvement % Improvement: 85 - Objective Objective/Function: PATIENT IS NOT CONTINUING TO MAKE PROGRESS TOWARD ALL OF THE PT GOALS WITH HER KNEE BUT SHE IS INDEP WITH A POOL PROGRAM. SHE STILL HAS SIGNIFICANT DECREASED LEFT KNEE FUNCTIONAL ROM AND STRENGTH. KNEE FLEXION AND EXTENSION ROM HAVE NOT CONTINUED TO IMPROVE. PATIENT CONTINUES TO HAVE SIGNIFI CANT LEFT KNEE, LEG, FOOT AND ANKLE SWELLING THAT IS UNCHANGING AND SHE REPORTS THAT THE DOCTOR RECENTLY TOLD HER THAT IT MAY NOT EVER IMPROVE. SHE REPORTS SOME DAYS IT IS HARDLY THERE AND ELEVATING HELPS. 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 SHE IS HOWEVER ABLE TO INTERMITTENTLY ACTIVELY CORRECT POSTURE IN STANDING BETTER NOW. INDEP TRANSFER SIT TO STAND BUT DEPENDENCE ON RODOLFO UE'S TO DO SO. ABLE TO TRANSFER INDEP'LY FROM SUPINE TO SIT. LEFT KNEE ROM IN SUPINE WITH A HEEL SLIDE = -25 DEG EXT TO 112 DEG FLEXION. LEFT LE STRENGTH: HIP 4-/5, KNEE 3-/5, ANKLE 4/5. RECOMMEND PATIENT CONTINUE INDEP WATER EX AT THIS TIME. PATIENT IS UNALBE TO SLS ON EITHER LE WITHOUT UE ASSIST. SHE IS UNSAFE WITHOUT HER WALKER. [ End ] - Goals Goal 1:: DECREASE LEFT KNEE PAIN AND SWELLING Goal Progress: Goal Met Goal 2:: IMPROVE STANDING AND WALKING FUNCTION Goal Progress: Goal Met Goal 3:: INCREASE LEFT KNEE FUNCTIONAL ROM Goal Progress: Not Progressing Goal 4:: INCREASE LEFT KNEE FUNCTIONAL STRENGTH Goal Progress: Not Progressing Goal 5:: INDEP HOME AND POOL EXERCISE PROGRAMS FOR CONTINUED IMPROVEMENT ONCE FORMAL PHYSICAL THERAPY CONCLUDES. Goal Progress: Goal Met - Plan Plan: D/C TO INDEP WATER EX. PATIENT AGREEABLE. - D/C Information If there are questions or concerns regarding this patient's physical therapy, please feel free to call me at [phone]. Thank you for the referral of this patient. Sincerely, Mena Ridley, PT, Cert MDT
== END 2018-12-03 19:00 | disposition home or self-care (01) ==
LOC: PT 13:00
PROVIDERS: Family Provider Family Medicine; PCP Family Medicine; Visit Provider Family Medicine
DX: Z96.652 Presence of left artificial knee joint (principal)
CPT/HCPCS: 97110; 97113; 97162; 97530

== ENCOUNTER → 2021-10-10 13:13 | Outpatient (CLI) | payer MEDICARE, SELFPAY ==
[2021-10-10 13:37] LABS: Anion Gap 4 (5-15); BUN 22 mg/dL (7-18); BUN/Creat Ratio 26.4 RATIO (10-20); Calcium,Total 9.8 mg/dL (8.5-10.1); Chloride 92 mmol/L (98-107); Creatinine, Serum 0.83 mg/dL (0.55-1.02); EST Glomerular Filtration Rate 70 mL/min (>60); Est Glom Filt Rate - Afr Amer 85 mL/min (>60); Glucose 128 mg/dL (74-106); Magnesium 1.6 mg/dL (1.6-2.6); Potassium 4.9 mmol/L (3.5-5.1); Sodium Level 131 mmol/L (136-145)
== END ==
PROVIDERS: PCP Nurse Practitioner Family
DX: E66.9 Obesity, unspecified (principal); F32.A Depression, unspecified; I10 Essential (primary) hypertension; M19.90 Unspecified osteoarthritis, unspecified site; I35.0 Nonrheumatic aortic (valve) stenosis
CPT/HCPCS: 80048; 83735

== ENCOUNTER 2024-08-07 14:00 | Outpatient (RCR) | payer MEDICARE, SELFPAY ==
--- NOTE | 2024-07-21 12:53 | HP.PTEVAL ---
Patient's Visit Information Visit Information Visit Information: NIKITA FOFANA is a 79 year old F referred to Physical Therapy by WILFRID ORTIZ with a diagnosis of OA R kneeKirstinKA 05/06. Date of Evaluation: 07/21/24 Physical Therapist: Jhony Roldan, DPT, OCS, CSCS Visit Plan Frequency: 4-5x /Week Duration: 4-6 Weeks Plan: 5x/week x 2 weeks then 3x/week x 2-4 week for 1. knee ROM, patellar mobs, PROM, HS and gastroc and quad stretches and rollout. 2. Knee and LE AROM and strengthening to HEP as tolerated. 3. mobility working on sit to stand transfers and standing, then mobility with walkr when appropriate. pt will be limited by very poor knee and general mobility prior to this surgery and not walking hardly in 3-4 yrs and longstanding knee pain and inability to get erect and R hip pain requiring HERNAN, and neuropathy, multiple comorbidities including poor management of self. IE, QS with OP, knee flexion with OP, laq all 5/day Subjective Subjective: R TKA Theo 05/06/24. Will have manipulation tomorrow. Has had home PT after [facility] for 5 days nd then home PT 3x/week for a couple then 2x/week then stopped. been two weeks since any therapy. Having a hard time straightening it. Saw doc last Sunday and will have manip. Not a lot of pain now but hard to walk prior to surgery. Needs hips done also. R hip is painful and will have HERNAN 08/14/23. Regular exercises QS and standing at sink. Bending is going OK. Hard time getting to portopot at end of bed, Can't use walker due to short leg and pain in hip so haven't been walking. Needed rollator prior to surgery. Has lift chair for bathtub. Climb into bed with only leg help. attentive. Uses rollator to sit in and move ar ound at home with assisted pivot transfer. Also h/o sciatic pain. Overall poorly mobile. Last walk [facility] was 4 yrs ago with walker due to knee pain. Pain R hip: Pain Intensity (Out of 10): 0 Pain Intensity Range: 0 and 10 Objective Objective: Pushed back by to PT in WC. Unable to stand and needs assist to pivot trasnfer today. With december VC for Fw weight shift and hand placement, did stand at wh walker for 5 seconds 1x today, screams seemingly in pain but unable to actually tell me why she screams. Limiting factors are lack of extension in lumbar as she stays hunched over, no forward weight shift getting hips over feet, VC needed for hand placement on chair, hip pain R, lack of ROM R knee making her stand on R toe in approx -30 flexion. Seated AROM R knee -28 to 95, L knee i -10 to 98 AROM. Max stiffness and very little movement in R patella today. Tightness obvious in B HS at -50 B. strength hip flexion 3, abd 3, extension 3- knee flexion 3- R and 3 L, flexion 3 B, ankles DF 3 L and 3+ R, 3 inv/ev. Sensation deficit to gross light touch in feet. gastroc max tight at -5 AROM DF. Hard to coordinate movement in LE ankles with poor body awareness and motor control. sit to stand with mod A, stand to sit with min a and VC. Unable to TUG, 30 SSTS or fGA today. Balance/Special Test Scores WOMAC Total Score: 75 WOMAC Percentatge: 21.8800 Goals Goal 1:: -10 to 100 degree AROM R kn ee without pain Goal Time Frame: 4-6 Weeks Goal 2:: Sit to stand with UE I without VC Goal Time Frame: 4-6 Weeks Goal 3:: stand at walker and walk 10 feet mod I with walker Goal Time Frame: 4-6 Weeks Goal 4:: I appropriate HEP to limit future problems with knees. Goal Time Frame: 4-6 Weeks Rehabilitation Potential Physical Therapy Diagnosis: s/p TKA 05/06 and manip will be done on 07/22, very weak and poor mobility prior with multifactorial limitations of mobility. Rehabilitation Potential: Questionable Anticipated Interventions Patient/Client Instruction: Educate patient on: Condition, Plan of Care and Risk Factors For the Purpose of:: To decrease pain, To increase ROM, To improve nutrient delivery to tissue, To improve muscle performance and motor function, To increase tolerance to activity/condition/position, To improve ability of physical actions for home/community/work/leisure and To increase flexibility/ROM Therapeutic Exercise to Include: Strength training, Postural training, Flexibilty training, Gait and locomotor training, Passive ROM and Active ROM For the Purpose of:: To decrease pain, To increase ROM, To improve nutrient delivery to tissue, To improve muscle performance and motor function, To increase tolerance to activity/condition/position, To improve ability of physical actions for home/community/work/leisure and To increase flexibility/ROM Manual Therapy Techniques to Include: Mobilization, Passive ROM and Soft tissue mobilization For the Purpose of:: To decrease pain, To increase ROM, To improve nutrient delivery to tissue and To improve muscle performance and motor function Cryotherapy (ice pack, ice massage): Yes Thermo therapy (hot pack): Yes For the Purpose of:: To decrease pain, To increase ROM and To improve nutrient delivery to tissue Text: Thank you for the opportunity to evaluate your patient. For Medicare and Medicare HMO plans, please review the plan of care and approve it. It will need to be FAXED BACK to us at [phone] for Medicare purposes. For Medicare only, by signing this I certify the plan of care. Please let me know if there are questions or concerns regarding this plan of care. Physician Signature: Date:
--- NOTE | 2024-08-12 11:31 | HP.PT.NRP ---
Patient Information Patient Information: NIKITA FOFANA was seen in my office for initial evaluation on 07/21/24. The following Plan of Care was established for this patient: POC Established Initial Frequency: 4-5x /Week Initial Duration: 4-6 Weeks Anticipated Interventions Patient/Client Instruction: Educate patient on: Condition, Plan of Care and Risk Factors For the Purpose of:: To decrease pain, To increase ROM, To improve nutrient delivery to tissue, To improve muscle performance and motor function, To increase tolerance to activity/condition/position, To improve ability of physical actions for home/community/work/leisure and To increase flexibility/ROM Therapeutic Exercise to Include: Strength training, Postural training, Flexibilty training, Gait and locomotor training, Passive ROM and Active ROM For the Purpose of:: To decrease pain, To increase ROM, To improve nutrient delivery to tissue, To improve muscle performance and motor function, To increase tolerance to activity/condition/position, To improve ability of physical actions for home/community/work/leisure and To increase flexibility/ROM Manual Therapy Techniques to Include: Mobilization, Passive ROM and Soft tissue mobilization For the Purpose of:: To decrease pain, To increase ROM, To improve nutrient delivery to tissue and To improve muscle performance and motor function Cryotherapy (ice pack, ice massage): Yes Thermo therapy (hot pack): Yes For the Purpose of:: To decrease pain, To increase ROM and To improve nutrient delivery to tissue Last Seen Last Seen: This patient was last seen in our office 08/07/24. Pertinent comments regarding their Physical therapy will appear below: Pt seen 9 visits of POC but cancelled the rest and asking for discharge as she will have surgery in 2 days. At this point I will be discontinuing this patient from physical therapy. I would be happy to see this patient again in the future if found appropriate by the physician. Thank you! Jhony Roldan, DPT, OCS, CSCS Balance/Gait/Functional tests Balance/Special Test Scores WOMAC Total Score: 75 WOMAC Percentage: 21.8800
== END 2024-08-07 19:00 | disposition home or self-care (01) ==
LOC: PT 14:00
PROVIDERS: PCP Nurse Practitioner Family; Referring Provider Nurse Practitioner Family; Visit Provider Nurse Practitioner Family
DX: M17.11 Unilateral primary osteoarthritis, right knee (principal)
CPT/HCPCS: 97110; 97163; 97530

== ENCOUNTER 2024-11-04 14:07 | Day surgery (SDC) | payer MEDICARE, SELFPAY ==
--- NOTE | 2024-10-31 13:50 | PAT.ANESEVAL ---
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 When Was Last Pacemaker Check QUESTION #4 FULL TEXT: You/Your Family Experience fever (hyperthermia) with Anesthesia Last Oral Intake Last Oral intake: Last Oral Intake NPO since Meds taken in AM with sips of water? 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 Has anyone observed you stop No 10/31/24 12:07 breathing during sleep? STOP Results Positive 10/31/24 12:07 QUESTION #5 FULL TEXT : Do you snore loudly (louder than talking or can be heard through closed doors)? 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 Specify any problems Hx of Preganancy in last 3 No 10/31/24 12:07 Months Nurse Filling Out Transfusion DSCHRIBER 10/31/24 12:07 & Questions: Date: 10/31/24 10/31/24 12:07 Time: 12:10 10/31/24 12:07 Patient unable to answer at this time (ie. 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: /Reproductive Hx- copying machine mechanic Hx Now No 10/31/24 12:07 Gestational Age (in weeks): EDC: Hx Hx Para Hx Section SAB No 10/31/24 12:07 PFS Medical History (Updated 10/31/24 @ 12:24 by Flavia Dillard) Wears glasses Wears dentures Post-menopausal Alcohol use Bladder disease Uses wheelchair Low iron DVT (deep venous thrombosis) Restless legs Back pain History of diverticulitis Heartburn Former smoker On home oxygen therapy Leg cramps History of pain when walking History of edema History of echocardiogram History of stress test Cardiology follow-up encounter Vitamin D deficiency Panic disorder without agoraphobia Depression HLD (hyperlipidemia) COPD (chronic obstructive pulmonary disease) CHF (congestive heart failure) DDD (degenerative disc disease) Rectal mass Anemia Home Medications ?Medication ?Instructions ?Recorded ?Last Taken ?Type levocetirizine 5 mg tablet (Xyzal) 5 mg PO BID itching 08/13/18 Unknown History tolterodine 2 mg tablet (Detrol) 2 mg PO DAILY PRN PRN Bladder Spasm 08/13/18 Unknown History albuterol sulfate 90 mcg/actuation 1 inh inhalation Q4H PRN shortness 09/02/24 Unknown History aerosol inhaler of breath or wheezing aspirin 81 mg tablet,delayed 81 mg PO QDAY 09/02/24 10/31/24 History release (Adult Aspirin Regimen) atorvastatin 40 mg tablet 40 mg PO QDAY 09/02/24 Unknown History bumetanide 1 mg tablet 1 mg PO QDAY PRN edema 09/02/24 Unknown History cholecalciferol (vitamin D3) 25 25 mcg PO QDAY 09/02/24 Unknown History mcg (1,000 unit) capsule cyanocobalamin (vitamin B-12) 1,000 mcg PO QDAY 09/02/24 Unknown History 1,000 mcg tablet fluticasone 100 mcg-salmeterol 50 1 inh inhalation BID 09/02/24 Unknown History mcg/dose blistr powdr for inhalation (Advair Diskus) losartan 50 mg tablet 50 mg PO QDAY 09/02/24 Unknown History metoprolol succinate 25 mg 25 mg PO QDAY 09/02/24 Unknown History tablet,extended release 24 hr paroxetine HCl 40 mg tablet 40 mg PO QHS 09/02/24 Unknown History potassium chloride 10 mEq 10 meq PO QDAY PRN WITH USE OF 09/02/24 Unknown History capsule,extended release BUMEX ferrous sulfate 325 mg (65 mg 325 mg PO DAILY 10/31/24 10/31/24 History iron) tablet (Feosol) magnesium 250 mg tablet 250 mg PO DAILY 10/31/24 Unknown History oxycodone-acetaminophen 5 mg-325 1 tab PO DAILY PRN PRN pain 10/31/24 Unknown History mg tablet sennosides 8.6 mg-docusate sodium 2 tab PO DAILY 10/31/24 Unknown History 50 mg tablet Allergy/AdvReac Type Severity Reaction Status Date / Time amoxicillin (From Amoxil) Allergy Intermediate Swelling Verified 10/31/24 12:02 lisinopril Allergy Intermediate Other Verified 10/31/24 12:02 Penicillins (PCN) Allergy Swelling Verified 10/31/24 12:02 Sulfa (Sulfonamide Allergy Swelling Verified 10/31/24 12:02 Antibiotics) Family History (Updated 09/02/24 @ 10:44 by Marilee Cheatham) Father Heart disease Seizures CVA (cerebral vascular accident) Mother Chronic mental illness Surgical History (Updated 10/31/24 @ 12:24 by Flavia Dillard) History of cardiac catheterization History of cardiac catheterization History of esophagogastroduodenoscopy (EGD) Hx of colonoscopy Hx of total knee arthroplasty History of lumbar spinal fusion History of total hysterectomy S/P total knee replacement S/P TAVR (transcatheter aortic valve replacement) Social History (Updated 09/02/24 @ 10:44 by Marilee Cheatham) Smoking Status: Former smoker alcohol intake: current Alcohol type: beer Audit: Pertinent Findings Pertinent Findings EKG Perinent findings: 12/07/2021. Sinus rhythm 85 bpm. Borderline T wave abnormality anterior leads. T wave flat or negative V2 through V6 Echo (EF%) pertinent findings: 10/27/2024 EF 60%. Replace aortic valve present. Mildly increased gradient to 15 mmHg. Right PA pressure 46 Consult pertinent findings: [facility] 10/13/2024 office notes. Patient should be optimized from cardiac standpoint once anemia is resolved. Continue iron supplementation and consider EGD if colonoscopy is negative. Recommendation Anesthesia Recommendation Anesthesia recommendation: OPTIMIZED for anesthesia
[2024-11-04] VITALS (9 sets, daily range): BP systolic 142–172; BP diastolic 61–80; PULSE 68–74; RESP 16–18; TEMP 36.2–36.6; O2SAT 96–100; BMI 34.6
--- NOTE | 2024-11-04 15:14 | PCM.PRE.AN2 ---
ASA Classification* ASA Classification ASA Classification: 3 Assessment & Plan Anesthesia* Anesthesia Assessment Anesthesia Assessment: Discussed sedation and/or anesthesia options, risks, benefits, and alternatives with patient/parents/legal guardian/POA. Questions invited. The patient/parents/legal guardian/POA seems to understand and agrees to proceed with anesthesia plan. Reviewed the physical assessment, medical history, allergy history and patient home medications list prior to surgery/procedure/anesthetic and documented any changes. Performed airway and anesthesia risk assessments. Anesthesia Type Anesthesia Type: MAC History Source History Obtained from:: Patient and Chart Anesthesia Focused Assessment* Temperature: 97.9 F Pulse Rate: 72 Blood Pressure: 172/77 Respiratory Rate: 18 Pulse Ox: 96 Oxygen Delivery Method: Room Air Airway Assessment Mouth opens: >3 cm Mallampati Score: IV Teeth Condition: Dentures (Patient has full upper and lower dentures.) Neck Range of motion (ROM): Limited ROM (Somewhat decreased extension) Focused Labs Anesthesia Preop lab: CBC WBC 9.7 K/mm3 (4.4-11.0) 05/15/24 06:25 05/15/24 RBC 3.08 M/mm3 (4.2-5.4) L 05/15/24 06:25 05/15/24 Hgb 8.2 g/dL (12.0-15.0) L 05/15/24 06:25 05/15/24 Hct 27.9 % (37-47) L 05/15/24 06:25 05/15/24 Plt Count 372 K/mm3 (150-450) 05/15/24 06:25 05/15/24 CHEMISTRY Potassium 3.7 mmol/L (3.5-5.1) 05/15/24 06:25 05/15/24 Sodium 136 mmol/L (136-145) 05/15/24 06:25 05/15/24 Magnesium 1.6 mg/dL (1.6-2.6) 10/10/21 12:30 10/10/21 BUN 17 mg/dL (7-18) 05/15/24 06:25 05/15/24 Creatinine 0.61 mg/dL (0.55-1.02) 05/15/24 06:25 05/15/24 Glucose 93 mg/dL (74-106) 05/15/24 06:25 05/15/24 COAG Pre-Assessment Diagnosis/Proposed Procedure Planned Operative Procedure(s): EGD/CSCOPE Anesthesia History 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 When Was Last Pacemaker Check QUESTION #4 FULL TEXT: You/Your Family Experience fever (hyperthermia) with Anesthesia Last Oral Intake Last Oral intake: Last Oral Intake NPO since 11:00 11/04/24 14:44 Meds taken in AM with sips of Yes 11/04/24 14:44 water? 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 Female Yes 10/31/24 12:07 HX of Motion Sickness No 10/31/24 12:07 HX of N/V After Surgery No 10/31/24 12:07 Non-Smoker Yes 10/31/24 12:07 Duration of Surgery greater No 10/31/24 12:07 than 60 minutes Number of Risk Factors 2 10/31/24 12:07 PONV Score Moderate Risk 10/31/24 12:07 Height & Weight Height & Weight: Anesthesia: Height & Weight Height 5 ft 5 in 11/04/24 14:44 Weight: 94.347 kg 11/04/24 14:44 Body Mass Index (BMI) 34.6 11/04/24 14:44 Respiratory Assessment Respiratory Assessment - sports leadership instructor: Respiratory Tract Infection Hx - sports leadership instructor Hx Respiratory Tract Infection No 10/31/24 12:07 STOP Sleep Apnea STOP Sleep Apnea - sports leadership instructor: STOP Sleep Apnea - sports leadership instructor Hx Hypertension Yes: CONTROLLED WITH MED 10/31/24 12:07 Hx Sleep Apnea No 10/31/24 12:07 CPAP BIPAP Do you snore loudly (louder Yes 10/31/24 12:07 than talking or can be heard Do you often feel tired/ No 10/31/24 12:07 fatigued/ sleepy during daytime? Has anyone observed you stop No 10/31/24 12:07 breathing during sleep? STOP Results Positive 10/31/24 12:07 QUESTION #5 FULL TEXT : Do you snore loudly (louder than talking or can be heard through closed doors)? 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 Specify any problems Hx of Preganancy in last 3 No 10/31/24 12:07 Months Nurse Filling Out Transfusion DSCHRIBER 10/31/24 12:07 & Questions: Date: 10/31/24 10/31/24 12:07 Time: 12:10 10/31/24 12:07 Patient unable to answer at this time (ie. confused, unrespo /Reproduction History /Reproductive History - sports leadership instructor: /Reproductive Hx- sports leadership instructor Hx Now No 10/31/24 12:07 Gestational Age (in weeks): EDC: Hx Hx Para Hx Section SAB No 10/31/24 12:07 PFSH Medical History Wears glasses Wears dentures Post-menopausal Alcohol use Bladder disease Uses wheelchair Low iron DVT (deep venous thrombosis) Restless legs Back pain History of diverticulitis Heartburn Former smoker On home oxygen therapy Leg cramps History of pain when walking History of edema History of echocardiogram History of stress test Cardiology follow-up encounter Vitamin D deficiency Panic disorder without agoraphobia Depression HLD (hyperlipidemia) COPD (chronic obstructive pulmonary disease) CHF (congestive heart failure) DDD (degenerative disc disease) Rectal mass Anemia Home Medications ?Medication ?Instructions ?Recorded ?Last Taken ?Type levocetirizine 5 mg tablet (Xyzal) 5 mg PO BID itching 08/13/18 11/04/24 08:00 History tolterodine 2 mg tablet (Detrol) 2 mg PO DAILY PRN PRN Bladder Spasm 08/13/18 Unknown History albuterol sulfate 90 mcg/actuation 1 inh inhalation Q4H PRN shortness 09/02/24 Unknown History aerosol inhaler of breath or wheezing aspirin 81 mg tablet,delayed 81 mg PO QDAY 09/02/24 10/31/24 History release (Adult Aspirin Regimen) atorvastatin 40 mg tablet 40 mg PO QDAY 09/02/24 11/03/24 History bumetanide 1 mg tablet 1 mg PO QDAY PRN edema 09/02/24 Unknown History cholecalciferol (vitamin D3) 25 25 mcg PO QDAY 09/02/24 10/31/24 History mcg (1,000 unit) capsule cyanocobalamin (vitamin B-12) 1,000 mcg PO QDAY 09/02/24 10/31/24 History 1,000 mcg tablet fluticasone 100 mcg-salmeterol 50 1 inh inhalation BID 09/02/24 11/04/24 08:00 History mcg/dose blistr powdr for inhalation (Advair Diskus) losartan 50 mg tablet 50 mg PO QDAY 09/02/24 11/04/24 08:00 History metoprolol succinate 25 mg 25 mg PO QDAY 09/02/24 11/04/24 08:00 History tablet,extended release 24 hr paroxetine HCl 40 mg tablet 40 mg PO QHS 09/02/24 11/03/24 History potassium chloride 10 mEq 10 meq PO QDAY PRN WITH USE OF 09/02/24 Unknown History capsule,extended release BUMEX ferrous sulfate 325 mg (65 mg 325 mg PO DAILY 10/31/24 10/31/24 History iron) tablet (Feosol) magnesium 250 mg tablet 250 mg PO DAILY 10/31/24 10/31/24 History oxycodone-acetaminophen 5 mg-325 1 tab PO DAILY PRN PRN pain 10/31/24 11/03/24 History mg tablet sennosides 8.6 mg-docusate sodium 2 tab PO DAILY 10/31/24 Unknown History 50 mg tablet Allergy/AdvReac Type Severity Reaction Status Date / Time amoxicillin (From Amoxil) Allergy Intermediate Swelling Verified 11/04/24 14:36 lisinopril Allergy Intermediate Other Verified 11/04/24 14:36 Penicillins (PCN) Allergy Swelling Verified 11/04/24 14:36 Sulfa (Sulfonamide Allergy Swelling Verified 11/04/24 14:36 Antibiotics) Family History Father Heart disease Seizures CVA (cerebral vascular accident) Mother Chronic mental illness Surgical History History of cardiac catheterization History of cardiac catheterization History of esophagogastroduodenoscopy (EGD) Hx of colonoscopy Hx of total knee arthroplasty History of lumbar spinal fusion History of total hysterectomy S/P total knee replacement S/P TAVR (transcatheter aortic valve replacement) Social History Smoking Status: Former smoker alcohol intake: current Alcohol type: beer Review of Systems (Anesthesia) ROS Narrative System reviewed and no additional complaints, except as documented.
--- NOTE | 2024-11-04 15:15 | EGD_PTH ---
PATIENT: NIKITA FOFANA LOC: EN U#:[id number] AGE/SX: 79/F ROOM: RE11/04/[address]: Dr. Jesu Simmons DO : 1945 BED: DIS: 11/04/2024 SPEC #: [id number] RECD: 11/05/24 11:05 STATUS: [place] REGeoffrey #: [id number] ISMAEL: 11/04/24 15:[address]: Jesu Simmons DEPT: SURGICAL PATHOLOGY RECD BY: Gregor Slaughter ENTERED: 11/05/24 11:05 SP TYPE: EGD BIOPSY SHERITA DR: Tramaine Dunbar, BUSINESS CONTINUITY MANAGER-C Tissues: A - Gastric mucous membrane B - Cecum, NOS Procedures: Immunohistochemical Stains Surgery Specimen Level IV HEADER OPERATION: Colonoscopy with biopsy, EGD with biopsy PRE-OP DIAGNOSIS: Abdominal pain, anemia TISSUE SUBMITTED: A- Gastric ulcer biopsy, B- Cecal polyp biopsy MICROSCOPIC DIAGNOSIS A. Stomach, Ulcer, Biopsy: - Mild chronic inflammation with reactive/reparative changes. - IHC is negative for H pylori organisms. B. Colon, Cecum, Polyp, Biopsy: - Tubular adenoma. MICROSCOPIC DESCRIPTION Slides are reviewed. These tests were developed and their performance characteristics determined by [facility]. They may not have been cleared or approved by the U.S. Food and Drug Administration. The FDA has determined that such clearance or approval is not necessary. The above immunohistochemical/dualISH markers are ordered and reviewed by the Pathologist. GROSS DESCRIPTION A. Received in formalin in a container labeled with the patient's name, date of , and Gastric ulcer biopsy are 3 sloan-pink fragments of mucosal tissue ranging from 0.2 x 0.2 x 0.2 cm to 0.3 x 0.3 x 0.3 cm. Submitted in toto in A1. B. Received in formalin in a container labeled with the patient's name, date of , and Cecal polyp biopsy is a 0.4 x 0.3 x 0.2 cm fragment of sloan-pink mucosal tissue. Submitted in toto in B1. SB 11/05/2024 CPT:36658k2,71073
--- NOTE | 2024-11-04 15:18 | PCM.HP.STD ---
HPI - General General Date of Admission: 11/04/24 Date of Service: 11/04/24 Chief Complaint: anemia HPI Narrative NIKITA FOFANA, is a 79 F who presents for the endoscopic evaluation of anemia. Pt was preparing to undergo hip replacement surgery but was found to have anemia and her surgeons would not proceed until the hemoglobin was normalized. She does not endorse any blood in her stool or black tarry stools. She did have some abd pain a few weeks ago in the LLQ for which she was seen in the ED for. Work up revealed low hgb, iron and CT showing possible thickening in the anorectal region. She was discharged. She is no longer having any abd pain. She has a daily bm that is soft. Her last colonoscopy and EGD was over 10 years ago with no abnormalities. CT abd/pelvis 2.5.25; Study is degraded due to motion and decreased signal to noise ratio. Focal soft tissue thickening/fullness of the anorectal junction may suggest neoplasm or less likely an acute infectious/inflammatory proctitis. Recommend correlation with direct physical exam. Moderate sigmoid diverticulosis w/o diverticulitis. [facility] Medical History Wears glasses Wears dentures Post-menopausal Alcohol use Bladder disease Uses wheelchair Low iron DVT (deep venous thrombosis) Restless legs Back pain History of diverticulitis Heartburn Former smoker On home oxygen therapy Leg cramps History of pain when walking History of edema History of echocardiogram History of stress test Cardiology follow-up encounter Vitamin D deficiency Panic disorder without agoraphobia Depression HLD (hyperlipidemia) COPD (chronic obstructive pulmonary disease) CHF (congestive heart failure) DDD (degenerative disc disease) Rectal mass Anemia Home Medications ?Medication ?Instructions ?Recorded ?Last Taken ?Type levocetirizine 5 mg tablet (Xyzal) 5 mg PO BID itching 08/13/18 11/04/24 08:00 History tolterodine 2 mg tablet (Detrol) 2 mg PO DAILY PRN PRN Bladder Spasm 08/13/18 Unknown History albuterol sulfate 90 mcg/actuation 1 inh inhalation Q4H PRN shortness 09/02/24 Unknown History aerosol inhaler of breath or wheezing aspirin 81 mg tablet,delayed 81 mg PO QDAY 09/02/24 10/31/24 History release (Adult Aspirin Regimen) atorvastatin 40 mg tablet 40 mg PO QDAY 09/02/24 11/03/24 History bumetanide 1 mg tablet 1 mg PO QDAY PRN edema 09/02/24 Unknown History cholecalciferol (vitamin D3) 25 25 mcg PO QDAY 09/02/24 10/31/24 History mcg (1,000 unit) capsule cyanocobalamin (vitamin B-12) 1,000 mcg PO QDAY 09/02/24 10/31/24 History 1,000 mcg tablet fluticasone 100 mcg-salmeterol 50 1 inh inhalation BID 09/02/24 11/04/24 08:00 History mcg/dose blistr powdr for inhalation (Advair Diskus) losartan 50 mg tablet 50 mg PO QDAY 09/02/24 11/04/24 08:00 History metoprolol succinate 25 mg 25 mg PO QDAY 09/02/24 11/04/24 08:00 History tablet,extended release 24 hr paroxetine HCl 40 mg tablet 40 mg PO QHS 09/02/24 11/03/24 History potassium chloride 10 mEq 10 meq PO QDAY PRN WITH USE OF 09/02/24 Unknown History capsule,extended release BUMEX ferrous sulfate 325 mg (65 mg 325 mg PO DAILY 10/31/24 10/31/24 History iron) tablet (Feosol) magnesium 250 mg tablet 250 mg PO DAILY 10/31/24 10/31/24 History oxycodone-acetaminophen 5 mg-325 1 tab PO DAILY PRN PRN pain 10/31/24 11/03/24 History mg tablet sennosides 8.6 mg-docusate sodium 2 tab PO DAILY 10/31/24 Unknown History 50 mg tablet Allergy/AdvReac Type Severity Reaction Status Date / Time amoxicillin (From Amoxil) Allergy Intermediate Swelling Verified 11/04/24 14:36 lisinopril Allergy Intermediate Other Verified 11/04/24 14:36 Penicillins (PCN) Allergy Swelling Verified 11/04/24 14:36 Sulfa (Sulfonamide Allergy Swelling Verified 11/04/24 14:36 Antibiotics) Family History Father Heart disease Seizures CVA (cerebral vascular accident) Mother Chronic mental illness Surgical History History of cardiac catheterization History of cardiac catheterization History of esophagogastroduodenoscopy (EGD) Hx of colonoscopy Hx of total knee arthroplasty History of lumbar spinal fusion History of total hysterectomy S/P total knee replacement S/P TAVR (transcatheter aortic valve replacement) Social History Smoking Status: Former smoker alcohol intake: current Alcohol type: beer ROS Constitutional Constitutional: Denies fatigue, fever(s), poor appetite, weight gain or weight loss Gastrointestinal Gastrointestinal: Denies belching, bloating, change in bowel habits, change in stool character, chewing difficulty, coffee ground emesis, constipation, cramping, diarrhea, dyspepsia, dysphagia, early satiety, excessive flatus, fecal incontinence, heartburn, hematemesis, hematochezia, hemorrhoids, loose stools, melena, nausea, odynophagia, rectal bleeding, tenesmus, vomiting or weight changes Vital Signs Vital Signs Vital Signs: 11/04/24 14:41 11/04/24 14:44 Temperature 97.9 F Temperature Source Temporal Pulse Rate 72 Respiratory Rate 18 Respiratory Pattern Normal Blood Pressure 172/77 H Blood Pressure Mean 108 Blood Pressure Source Monitor Blood Pressure Position Semi-Fowlers Blood Pressure Location Left Arm Pulse Ox 96 Oxygen Delivery Method Room Air Weight Weight: 208 lb Body Mass Index (BMI) 34.6 Physical Exam Const alert, oriented x3, no apparent distress and healthy appearing General Appearance: cooperative GI normal to inspection, nondistended, normoactive bowel sounds, soft to palpation, non-tender and non-distended Percussion: normal to percussion Rectal Exam: deferred Assessment & Plan Assessment/Plan (1) Abdominal pain: (2) Anemia: PLAN: Assessment and Plan Assessment and Plan (1) Anemia: Status: Acute Plan: This is an 79 yo female pt here for evaluation of anemia. Pt was to undergo hip replacement surgery until she was found to be anemic. She is unaware of any blood in her stool. SHe does not have black or tarry looking stools. She did have some abd pain for one day and did go to the ED. CT revealed possible thickening in the anorectal region concerning for neoplasm. pt was unaware of the results of this CT so I did review with her. Her Hgb at the end of Aug 2024 was around 9 and iron was low at 20. I recommend she start an iron supplement. I did advise this may give her constipation and black stool. She will need to undergo EGD and colonoscopy to assess for GI bleeding and rule out malignancy in her rectum. SHe is agreeable to this plan and will proceed. -Colonoscopy -EGD -f/u after procedure (2) Abdominal pain: Status: Acute
--- NOTE | 2024-11-04 16:05 | OP.EGD_ITS ---
Patient Name: Asmita Huddleston Procedure Date: 11/04/2024 3:23 PM Date of : 1945 Age: 79 Procedure: Upper GI endoscopy Indications: Iron deficiency anemia Providers: Jesu Simmons DO Medicines: Monitored Anesthesia Care Patient Profile: This is an 79 year old female. Refer to note in patient chart for documentation of history and physical. Patient has symptoms. Complications: No immediate complications. Procedure: Pre-Anesthesia Assessment: - Prior to the procedure, a History and Physical was performed, and patient medications and allergies were reviewed. The patient is competent. The risks and benefits of the procedure and the sedation options and risks were discussed with the patient. All questions were answered and informed consent was obtained. Patient identification and proposed procedure were verified by the physician in the pre-procedure area. Mental Status Examination: alert and oriented. Airway Examination: normal oropharyngeal airway and neck mobility. Respiratory Examination: clear to auscultation. CV Examination: normal. ASA Grade Assessment: II - A patient with mild systemic disease. After reviewing the risks and benefits, the patient was deemed in satisfactory condition to undergo the procedure. The anesthesia plan was to use monitored anesthesia care (MAC). Immediately prior to administration of medications, the patient was re-assessed for adequacy to receive sedatives. The heart rate, respiratory rate, oxygen saturations, blood pressure, adequacy of pulmonary ventilation, and response to care were monitored throughout the procedure. The physical status of the patient was re-assessed after the procedure. After obtaining informed consent, the endoscope was passed under direct vision. Throughout the procedure, the patient's blood pressure, pulse, and oxygen saturations were monitored continuously. The Colonoscope was introduced through the mouth, and advanced to the fourth part of the duodenum. Small bowel enteroscopy was deemed necessary. The upper GI endoscopy was accomplished without difficulty. The patient tolerated the procedure well. Scope In: 3:35:43 PM Scope Out: 3:39:20 PM Total Procedure Duration Time 0 hours 3 minutes 37 seconds Findings: No gross lesions were noted in the entire esophagus. A hiatal hernia was present. Two non-bleeding cratered gastric ulcers with no stigmata of bleeding were found in the gastric antrum. The largest lesion was 10 mm in largest dimension. Biopsies were taken with a cold forceps for histology. Verification of patient identification for the specimen was done. Biopsies were taken with a cold forceps for Helicobacter pylori testing. Verification of patient identification for the specimen was done. Estimated blood loss was minimal. No gross lesions were noted in the third portion of the duodenum. Impression: - No gross lesions in the entire esophagus. - Hiatal hernia. - Non-bleeding gastric ulcers with no stigmata of bleeding. Biopsied. - No gross lesions in the third portion of the duodenum. Recommendation: - Discharge patient to home. - Resume previous diet. - Continue present medications. - Await pathology results. - Omeprazole 40 mg a day - Repeat upper endoscopy to check healing. Procedure Code(s): --- Professional --- 73291, Small intestinal endoscopy, enteroscopy beyond second portion of duodenum, not including ileum; with biopsy, single or multiple CPT copyright 2021 [employer]. All rights reserved. The codes documented in this report are preliminary and upon hospital coder review may be revised to meet current compliance requirements. Jesu Simmons DO 11/04/2024 4:04:53 PM This report has been signed electronically. Number of Addenda: 0 Note Initiated On: 11/04/2024 3:23 PM
--- NOTE | 2024-11-04 16:05 | OP.CCLET_ITS ---
11/04/2024 Tramaine Dunbar Re : Upper GI endoscopy procedure for Asmita Huddleston Radhar Bettina This procedure was performed on Monday, November 04, 2024. My impressions and recommendations are as follows: Impressions : - No gross lesions in the entire esophagus. - Hiatal hernia. - Non-bleeding gastric ulcers with no stigmata of bleeding. Biopsied. - No gross lesions in the third portion of the duodenum. Recommendations : - Discharge patient to home. - Resume previous diet. - Continue present medications. - Await pathology results. - Omeprazole 40 mg a day - Repeat upper endoscopy to check healing. My findings are described in the full procedure note, which is enclosed. If I can be of further assistance, please feel free to contact me at . Sincerely, Jesu Simmons, 11/04/2024 4:04:53 PM This report has been signed electronically.
--- NOTE | 2024-11-04 16:09 | OP.CCLET_ITS ---
11/04/2024 Tramaine Dunbar Re : Colonoscopy procedure for Asmita Huddleston Dear Bettina This procedure was performed on Monday, November 04, 2024. My impressions and recommendations are as follows: Impressions : - Diverticulosis in the recto-sigmoid colon and in the sigmoid colon. - The examination was otherwise normal on direct and retroflexion views. - No specimens collected. Recommendations : - Discharge patient to home. - Resume previous diet. - Continue present medications. - Await pathology results. - No repeat colonoscopy due to age. My findings are described in the full procedure note, which is enclosed. If I can be of further assistance, please feel free to contact me at . Sincerely, Jesu Simmons, 11/04/2024 4:08:28 PM This report has been signed electronically.
--- NOTE | 2024-11-04 16:09 | OP.COLON_ITS ---
Patient Name: Asmita Huddleston Procedure Date: 11/04/2024 3:40 PM Date of : 1945 Age: 79 Procedure: Colonoscopy Indications: Iron deficiency anemia Providers: Jesu Simmons DO Medicines: Monitored Anesthesia Care Patient Profile: This is an 79 year old female. Refer to note in patient chart for documentation of history and physical. Patient has symptoms. Last Colonoscopy: more than 10 years ago. Complications: No immediate complications. Procedure: Pre-Anesthesia Assessment: - Prior to the procedure, a History and Physical was performed, and patient medications and allergies were reviewed. The patient is competent. The risks and benefits of the procedure and the sedation options and risks were discussed with the patient. All questions were answered and informed consent was obtained. Patient identification and proposed procedure were verified by the physician in the pre-procedure area. Mental Status Examination: alert and oriented. Airway Examination: normal oropharyngeal airway and neck mobility. Respiratory Examination: clear to auscultation. CV Examination: normal. ASA Grade Assessment: II - A patient with mild systemic disease. After reviewing the risks and benefits, the patient was deemed in satisfactory condition to undergo the procedure. The anesthesia plan was to use monitored anesthesia care (MAC). Immediately prior to administration of medications, the patient was re-assessed for adequacy to receive sedatives. The heart rate, respiratory rate, oxygen saturations, blood pressure, adequacy of pulmonary ventilation, and response to care were monitored throughout the procedure. The physical status of the patient was re-assessed after the procedure. After I obtained informed consent, the scope was passed under direct vision. Throughout the procedure, the patient's blood pressure, pulse, and oxygen saturations were monitored continuously. The Colonoscope was introduced through the anus and advanced to the terminal ileum. The colonoscopy was performed without difficulty. The patient tolerated the procedure well. The quality of the bowel preparation was adequate. The ileocecal valve, appendiceal orifice, and rectum were photographed. Scope In: 3:42:22 PM Scope Withdrawal Time 0 hours 9 minutes 1 second Scope Out: 3:55:45 PM Total Procedure Duration Time 0 hours 13 minutes 23 seconds Findings: The perianal and digital rectal examinations were normal. Multiple small and large-mouthed diverticula were found in the recto-sigmoid colon and sigmoid colon. The exam was otherwise without abnormality on direct and retroflexion views. There was a large lipoma, at the hepatic flexure. A 5 mm polyp was found in the cecum. The polyp was sessile. The polyp was removed with a jumbo cold forceps. Resection and retrieval were complete. Verification of patient identification for the specimen was done. Estimated blood loss was minimal. Impression: - Diverticulosis in the recto-sigmoid colon and in the sigmoid colon. - The examination was otherwise normal on direct and retroflexion views. - No specimens collected. Recommendation: - Discharge patient to home. - Resume previous diet. - Continue present medications. - Await pathology results. - No repeat colonoscopy due to age. Procedure Code(s): --- Professional --- 76212, Colonoscopy, flexible; with biopsy, single or multiple CPT copyright 2021 [employer]. All rights reserved. The codes documented in this report are preliminary and upon credentialer review may be revised to meet current compliance requirements. Jesu Simmons DO 11/04/2024 4:08:28 PM This report has been signed electronically. Number of Addenda: 0 Note Initiated On: 11/04/2024 3:40 PM
--- NOTE | 2024-11-04 17:00 | PCM.POST.ANE ---
Anesthesia: Postop Eval I Current Vital Signs Temperature: 97.2 F Pulse Rate: 74 Blood Pressure: 154/73 Respiratory Rate: 16 Pulse Ox: 97 Oxygen Delivery Method: Room Air Assessment Airway patent: Yes Spontaneous unlabored respirations: Yes Mental status: Awake and Calm nausea: No Vomiting: No Anesthesia Complication: No Fluid Hydration Crystalloid volume administer (ml): 20 Total IV fluid infused: 20 Progress Note Anesthesia document: Postop Eval 1 completed: Yes
--- NOTE | 2024-11-04 20:08 | POSTOPAN2_ITS ---
Anesthesia Postop Eval I Sum Postop Eval Completion status Anesthesia document: Postop Eval 1 completed: Yes Anesthesia Postop Eval I Summary Anesthesia Postop Eval I Summary: Anesthesia Postop Eval I: Assessment Summary Airway patent Yes 11/04/24 17:01 MIXING HOUSE [email or web address].[email or web address] Spontaneous unlabored Yes 11/04/24 17:01 MIXING HOUSE OPERATOR.[email or web address] respirations Mental status Awake,Calm 11/04/24 17:01 MIXING HOUSE OPERATOR.[email or web address] nausea No 11/04/24 17:01 MIXING HOUSE OPERATOR.[email or web address] Vomiting No 11/04/24 17:01 MIXING HOUSE OPERATOR.[email or web address] Anesthesia Postop Eval I: Fluid Summary Crystalloid volume administer 20 11/04/24 17:01 MIXING HOUSE [email or web address].[email or web address] (ml) Colloids volume administered ( ml) Blood Product volume administered (ml) Total IV fluid infused 20 11/04/24 17:01 MIXING HOUSE OPERATOR.[email or web address] Anesthesia Postop Eval I: Summary Notes Anesthesia Complication No 11/04/24 17:01 MIXING HOUSE [email or web address].[email or web address] Anesthesia Complication Comment: Post-operative progress note Anesthesia: Postop Eval II Evaluation Mental status: Awake and Calm Pain Level: 0 nausea: No Vomiting: No Complications Anesthesia Complication: No
--- NOTE | 2024-11-04 20:08 | PCM.POSTANE2 ---
Anesthesia Postop Eval I Sum Postop Eval Completion status Anesthesia document: Postop Eval 1 completed: Yes Anesthesia Postop Eval I Summary Anesthesia Postop Eval I Summary: Anesthesia Postop Eval I: Assessment Summary Airway patent Yes 11/04/24 17:01 SALES OFFICE COORDINATOR.[email or web address] Spontaneous unlabored Yes 11/04/24 17:01 SALES OFFICE COORDINATOR.[email or web address] respirations Mental status Awake,Calm 11/04/24 17:01 SALES OFFICE COORDINATOR.[email or web address] nausea No 11/04/24 17:01 SALES OFFICE COORDINATOR.[email or web address] Vomiting No 11/04/24 17:01 SALES OFFICE COORDINATOR.[email or web address] Anesthesia Postop Eval I: Fluid Summary Crystalloid volume administer 20 11/04/24 17:01 SALES OFFICE COORDINATOR.[email or web address] (ml) Colloids volume administered ( ml) Blood Product volume administered (ml) Total IV fluid infused 20 11/04/24 17:01 SALES OFFICE COORDINATOR.[email or web address] Anesthesia Postop Eval I: Summary Notes Anesthesia Complication No 11/04/24 17:01 SALES OFFICE COORDINATOR.[email or web address] Anesthesia Complication Comment: Post-operative progress note Anesthesia: Postop Eval II Evaluation Mental status: Awake and Calm Pain Level: 0 nausea: No Vomiting: No Complications Anesthesia Complication: No
== END 2024-11-04 17:13 | disposition home or self-care (01) ==
LOC: EN 14:10 → AC 14:11
PROVIDERS: PCP Nurse Practitioner Family; Referring Provider Nurse Practitioner Family; Visit Provider Internal Medicine Gastroenterology
PROC: 0DJD8ZZ Inspection of Lower Intestinal Tract, Via Natural or Artificial Opening Endoscopic (ICD-10-PCS; CPT 45378; principal; 2024-11-04 15:10)
DX: K44.9 Diaphragmatic hernia without obstruction or gangrene (principal); J44.9 Chronic obstructive pulmonary disease, unspecified; Z87.891 Personal history of nicotine dependence; Z79.51 Long term (current) use of inhaled steroids; Z79.82 Long term (current) use of aspirin; Z90.710 Acquired absence of both cervix and uterus; E78.5 Hyperlipidemia, unspecified; K57.30 Diverticulosis of large intestine without perforation or abscess without bleeding; K25.9 Gastric ulcer, unspecified as acute or chronic, without hemorrhage or perforation; Z98.1 Arthrodesis status; Z95.2 Presence of prosthetic heart valve; R10.9 Unspecified abdominal pain; D50.9 Iron deficiency anemia, unspecified; Z86.718 Personal history of other venous thrombosis and embolism
CPT/HCPCS: 45380; 44361; 88305; A4216; J2405

== ENCOUNTER 2025-05-05 15:00 | Outpatient (RCR) | payer MEDICARE, SELFPAY ==
--- NOTE | 2025-02-12 15:59 | HP.PTEVAL_ITS ---
Patient's Visit Information Visit Information Visit Information: NIKITA FOFANA is a 79 year old F referred to Physical Therapy by Dr. Esequiel Venegas MD with a diagnosis of R HERNAN 11/27/24. Date of Evaluation: 02/12/25 Physical Therapist: Sami Jimenez, PT, ATC Visit Plan Frequency: 2x /Week Duration: 6 Weeks Plan: B LE strengthening, sit to stand transfers, gait training, nustep, and HEP Subjective Subjective: DOS: 11/27/24. Pt had a R HERNAN performed at that time. Pt reports the had the hip replaced, but then had to go back in the next day for a fractured hip socket. Pt notes after that surgery, she had home health for the following 8 weeks. However, pt reports the home therapy was very inconsistent with showing up, even sometimes not showing up for the whole week. Pt reports this has made her recovery very minimal as she notes she is not even able to stand up at this time. Pt notes she sits in a wheel chair for the majority of the day. Pt notes she has tingling and numbness in R LE secondary to peripheral neuropathy. Pt notes she needs to have help from her to get onto the toilet. Pt notes she usually has no pain in her right hip, just on rare occasion. Pt is still sleeping in a lounge chair at this time. Objective Objective: Neuro: B LE sensation is WNL to light touch MMT: L hip flex= 19, abd= 24, add= 26; R hip flex= 17, abd= 18, add= 25 #F Transfers: Pt is unable to stand independently. Pt requires Maxax1 for sit to stand. Gait: Pt is unable to ambulate at this time. Balance/Special Test Scores Lower Extremity Functional Score: 18 Goals Goal 1:: Pt will be able to perform a sit to stand transfer I to aid with I at home Goal Time Frame: 6-8 Weeks Goal 2:: Pt will be able to ambulate 10 feet with use of a WW and SBAx1 Goal Time Frame: 6-8 Weeks Goal 3:: Pt will be I with HEP Goal Time Frame: 6-8 Weeks Goal 4:: Pt will be I with all toileting at home Goal Time Frame: 6-8 Weeks Rehabilitation Potential Physical Therapy Diagnosis: Pt has Pt is unable to stand or ambulate at this time secondary to debility from R hip surgery Rehabilitation Potential: Good Anticipated Interventions Patient/Client Instruction: Educate patient on: Condition and Plan of Care For the Purpose of:: To improve self management Therapeutic Exercise to Include: Strength training, Endurance training, Balance training, Gait and locomotor training, Active ROM and Dynamic Lumbar Stabilization For the Purpose of:: To improve muscle performance and motor function, To increase tolerance to activity/condition/position and To improve gait and locomotor functions Text: Thank you for the opportunity to evaluate your patient. For Medicare and Medicare HMO plans, please review the plan of care and approve it. It will need to be FAXED BACK to us at [phone] for Medicare purposes. For Medicare only, by signing this I certify the plan of care. Please let me know if there are questions or concerns regarding this plan of care. Physician Signatu re: Date:
--- NOTE | 2025-04-03 15:47 | HP.PTREVAL ---
Re-Evaluation Intro: Dr. Esequiel Venegas MD, It has been my pleasure to treat NIKITA FOFANA over the last 14 visits for R HERNAN 11/27/24. Please see the progress note below for an update on the physical therapy plan of care! Subjective Subjective: I have definitely made some improvements, but I need more Objective Objective/Function: R hip/thigh pain is 0/10, but increases to 8/10 with weight bearing activity Pt is unable to perform a sit to stand transfer I. Pt is unable to ambulate at this time. Pt is showing significant improvements with transfers moving from max2 assist to max1 assist Plan Plan Plan: Attempt to get 12 more visits approved Balance/Gait/Functional tests Balance/Special Test Scores Lower Extremity Functional Score: 11 Goals Goals Goal 1:: Pt will be able to perform a sit to stand transfer I to aid with I at home Goal Time Frame: 6-8 Weeks Goal Progress: Progressing very slowly Goal 2:: Pt will be able to ambulate 10 feet with use of a WW and SBAx1 Goal Time Frame: 6-8 Weeks Goal Progress: Unable to be assessed Goal 3:: Pt will be I with HEP Goal Time Frame: 6-8 Weeks Goal Progress: Goal Met Goal 4:: Pt will be I with all toileting at home Goal Time Frame: 6-8 Weeks Goal Progress: Progressing Anticipated Interventions Anticipated Interventions Patient/Client Instruction: Educate patient on: Condition and Plan of Care For the Purpose of:: To improve self management Therapeutic Exercise to Include: Strength training, Endurance training, Balance training, Gait and locomotor training, Active ROM and Dynamic Lumbar Stabilization For the Purpose of:: To improve muscle performance and motor function, To increase tolerance to activity/condition/position and To improve gait and locomotor functions Re-Evaluation Ending Re-evaluation ending: Please do not hesitate to contact me at [phone] by phone or if you have questions or concerns regarding this new plan of care! Sincerely, Sami Jimenez, PT, ATC
--- NOTE | 2025-05-05 16:59 | HP.PTDCSUM ---
Discharge Summary D/C summary: It has been my pleasure to treat NIKITA FOFANA referred by Dr. Esequiel Venegas MD, with the diagnosis of R HERNAN 11/27/24 for a total of 19 visit(s). Discharge Date: Please see the following information for a summary of their discharge status. Subjective Subjective: Pt reports she continues to have difficulty with transfers at this time. Pain Right Hip: Pain Intensity (Out of 10): 0 Right Thigh: Pain Intensity (Out of 10): 0 Overall Improvement % Improvement: 20 Objective Objective/Function: Pt is still unable to stand up independently which makes it very hard for her to transfer Pt is still unable to ambulate at this time Pt is I with HEP Goals Goal 1:: Pt will be able to perform a sit to stand transfer I to aid with I at home Goal Progress: Not Progressing Goal 2:: Pt will be able to ambulate 10 feet with use of a WW and SBAx1 Goal Progress: Not Progressing Goal 3:: Pt will be I with HEP Goal Progress: Goal Met Goal 4:: Pt will be I with all toileting at home Goal Progress: Progressing Plan Plan: Discontinue at this time secondary to lack of progress D/C Information d/c sentence: If there are questions or concerns regarding this patient's physical therapy, please feel free to call me at [phone]. Thank you for the referral of this patient. Sincerely, Sami Jimenez, PT, ATC Balance/Gait/Functional tests Balance/Special Test Scores Lower Extremity Functional Score: 24 Improvement % Improvement: 20
== END 2025-05-05 19:00 | disposition home or self-care (01) ==
LOC: PT 15:00
PROVIDERS: PCP Nurse Practitioner Family; Referring Provider Orthopaedic Surgery; Visit Provider Orthopaedic Surgery
DX: M16.11 Unilateral primary osteoarthritis, right hip (principal)
CPT/HCPCS: 97110; 97161; 97530